=== PATIENT | female | born 1965 | race Caucasian/White ===

== ENCOUNTER 2020-04-16 16:12 | Outpatient (REF) | payer BC, SELFPAY ==
--- NOTE | ~2020-04-16 | MM_ITS ---
EXAMINATION: MM SCREENING DIGITAL BREAST TOMOSYNTHESIS, BILATERAL CLINICAL INFORMATION: Screening. Asymptomatic. The lifetime risk of breast cancer based on the Tyrer-Cuzick Model is 14%. COMPARISON: Mammography: 09/11/2018, 03/24/2017 TECHNIQUE: Digital breast tomosynthesis is performed in both the craniocaudal and mediolateral oblique views along with computer-aided detection (CAD). Synthesized 2D images are generated from the tomosynthesis. FINDINGS: The breasts are almost entirely fatty (ACR BI-RADS breast composition Category a). Background stromal markings are stable. No developing density. There are no significant masses, abnormal calcifications, or other abnormalities. MM/MM tomosynthesis screening BI IMPRESSION: No mammographic evidence of malignancy. ASSESSMENT: BI-RADS 1: Negative RECOMMENDATION: Routine annual mammography screening. This patient's information was entered into a reminder system with a target due date for their next mammogram.
== END 2020-04-16 16:13 | disposition home or self-care (01) ==
LOC: HO.MAMMO 16:12
PROVIDERS: Visit Provider Internal Medicine
DX: Z12.31 Encounter for screening mammogram for malignant neoplasm of breast (principal)
CPT/HCPCS: 77063; 77067

== ENCOUNTER 2020-04-21 06:32 | Day surgery (SDC) | payer BC, SELFPAY ==
--- NOTE | 2020-04-20 08:55 | HO.ANESPROP2 ---
Documented by User: Angela Silva 04/20/20 08:56 HPI - Anesthesia Eval Consult details Narrative: 54yo F for Colonoscopy [facility] Past Medical History Medical History Elevated cholesterol HTN (hypertension) Hypothyroid Seasonal allergies Surgical History Surgical History History of Hx of colonoscopy Social History Social History Smoking Status: Former smoker Years Smoked: 20 Use of substances other than those prescribed or required for medical reasons: No Advance Directives: No Advance Directives Information Provided: Yes Meds Allergies Allergy/AdvReac Type Severity Reaction Status Date / Time penicillin V Allergy Mild Rash Verified 04/21/20 06:50 Home Medications Medication Instructions Recorded Confirmed Last Taken Type levothyroxine 1 tab PO DAILY 04/14/20 04/14/20 Unknown History lisinopril 1 tab PO DAILY 04/14/20 04/14/20 Unknown History simvastatin 1 tab PO DAILY 04/14/20 04/14/20 Unknown History Exam Exam Date and Time: April 20, 2020 0855 Assessment and Plan Assessment Anesthesia Assessment: Chart Reviewed Documented by User: Surekha Garrison 04/21/20 07:48 [facility] Past Medical History Medical History Elevated cholesterol HTN (hypertension) Hypothyroid Seasonal allergies Surgical History Surgical History History of Hx of colonoscopy Social History Social History Smoking Status: Former smoker Years Smoked: 20 Use of substances other than those prescribed or required for medical reasons: No Advance Directives: No Advance Directives Information Provided: Yes Meds Allergies Allergy/AdvReac Type Severity Reaction Status Date / Time penicillin V Allergy Mild Rash Verified 04/21/20 06:50 Home Medications Medication Instructions Recorded Confirmed Last Taken Type levothyroxine 1 tab PO DAILY 04/14/20 04/14/20 Unknown History lisinopril 1 tab PO DAILY 04/14/20 04/14/20 Unknown History simvastatin 1 tab PO DAILY 04/14/20 04/14/20 Unknown History Exam Airway Mallampati Class: II TM Dist: >3cm Neck ROM: Full Loose/Missing/Broken Teeth: No Heart: RRR Lungs: CTA Assessment and Plan Assessment Anesthesia Assessment: Anesthesia Plan Discussed and Chart Reviewed Final Anesthetic Review NPO: Yes ASA Class: II Final Preanesthetic Review: Meds/Allgs Chart Reviewed, Consent Obtained/Reviewed and Anes Risks/Benef Reviewed Patient Risk: Low Procedure Risk: Low Anesthetic Plan Anesthetic Plan: MAC: Disposition: Standard PACU
[2020-04-21 06:57] VITALS: BMI 31.2
[2020-04-21 07:03] VITALS: BP 135/79; PULSE 75; RESP 16; TEMP 36.8; O2SAT 94
[2020-04-21] MEDS: Lactated Ringers 1,000 ML 100 ML IVCONT (07:20)
[2020-04-21 08:34] VITALS: BP 140/86; PULSE 93; RESP 16; TEMP 36.6; O2SAT 97
--- NOTE | 2020-04-21 08:34 | PM.OP ---
Brief Operative Note Date of Service: 04/21/20 Pre-op diagnosis: Screening, Hx of polyps Post-op diagnosis: other (Diverticulosis) Procedure: Colonoscopy to the cecum Surgeon: Bronson Ivan Anesthesia: MAC Estimated blood loss (mL): 0 Pathology: none sent Condition: stable Disposition: PACU
[2020-04-21 08:43] VITALS: BP 119/77; PULSE 86; RESP 18; TEMP 36.6; O2SAT 95
--- NOTE | 2020-04-21 09:17 | OP_ITS ---
SURGEON: Bronson Ivan MD INDICATIONS: Full consent has been obtained from her for this, including risks of bleeding and perforation. PREOPERATIVE DIAGNOSIS: Colorectal cancer screening and personal history of tubular adenoma of the colon. POSTOPERATIVE DIAGNOSIS: Colorectal cancer screening and personal history of tubular adenoma of the colon, diverticulosis and internal hemorrhoids. PROCEDURE PERFORMED: Colonoscopy to the cecum. ESTIMATED BLOOD LOSS: COMPLICATIONS: ANESTHESIA: Medication used, monitored anesthesia care. ASSISTANTS: SPECIMENS: DESCRIPTION OF PROCEDURE: The patient was placed in the left lateral decubitus position. The digital rectal exam revealed no abnormalities. The Olympus video pediatric colonoscope was entered into the rectum, advanced easily to the cecum. Once in the cecum, I did identify normal-appearing cecal pouch with appendiceal orifice and a normal-appearing ileocecal valve. There was transillumination of light deep in the right lower quadrant. The entire cecum and ileocecal valve appeared normal. The scope was slowly withdrawn assessing all mucosal surfaces carefully. Preparation was excellent. I did not visualize any sign of polyps, colitis, nor angiodysplasia. There was a mild amount of sigmoid diverticulosis. In the rectum, scope was retroflexed visualizing internal hemorrhoids, but no other pathology. The rectal mucosa appeared normal. The scope was straightened and withdrawn from the patient. She tolerated the procedure well and was returned to recovery area in stable condition. IMPRESSION: 1. Mild diverticulosis. 2. Internal hemorrhoids. PLAN: Given her previous history of a tubular adenoma, I would recommend a followup colonoscopy in 5 years for further screening. She will otherwise see me on a p.r.n. basis. This has been discussed with her . MD TOÑITO Justice/ASHWINIL / [phone]
--- NOTE | 2020-04-21 10:04 | HO.POSTANES ---
Post Anesthesia Evaluation Post Anesthesia Evaluation Vital Signs: Vital Signs Temp Pulse Resp BP Pulse Ox 04/21/20 08:43 97.9 F 86 18 119/77 95 04/21/20 08:34 97.9 F 93 16 140/86 H 97 04/21/20 07:03 98.2 F 75 16 135/79 94 Anesthesia: Monitored Mental Status: Awake Pain Control: Satisfactory Nausea/Vomiting: None Hydration: Adequate
== END 2020-04-21 09:16 | disposition home or self-care (01) ==
PROVIDERS: PCP Internal Medicine; Visit Provider Internal Medicine
PROC: 0DJD8ZZ Inspection of Lower Intestinal Tract, Via Natural or Artificial Opening Endoscopic (ICD-10-PCS; CPT 45378; principal; 2020-04-21 07:30)
DX: Z12.11 Encounter for screening for malignant neoplasm of colon (principal); Z86.010 Personal history of colon polyps; K57.30 Diverticulosis of large intestine without perforation or abscess without bleeding; K64.8 Other hemorrhoids; I10 Essential (primary) hypertension; Z91.09 Other allergy status, other than to drugs and biological substances
CPT/HCPCS: 45378; J2250

== ENCOUNTER 2020-08-26 09:45 | Outpatient (REF) | payer BC, SELFPAY ==
[2020-08-26 10:02] LABS: MANUAL DIFF FLAG NO
[2020-08-26 10:24] LABS: Basophils Percent Auto 0.5 % (0-2); Eosinophils Absolute Auto 0.1 X10*3/uL (0.0-0.4); Eosinophils Percent Auto 1.7 % (0-4); Imm Gran Abs Auto 0.03 X10*3/uL (0.00-0.03); Imm Gran Pct Auto 0.5 % (0.0-0.4); Lymphocytes Absolute Auto 1.3 X10*3/uL (1.2-4.9); Lymphocytes Percent Auto 20.8 % (20-40); Mean Corpuscular HGB Conc 32.6 g/dl (31.0-35.0); Mean Corpuscular Hemoglobin 27.7 pg (27.0-33.0); Mean Platelet Volume 10.1 fL (9.4-12.3); Monocytes Absolute Auto 0.5 X10*3/uL (0.1-1.2); Monocytes Percent Auto 8.4 % (2-11); Neutrophils Absolute Auto 4.3 X10*3/uL (2.0-8.3); Neutrophils Percent Auto 68.1 % (45-73); Platelet Count 219 X10*3/uL (160-400); Red Blood Count 5.06 X10*6/uL (4.20-5.50); Red Cell Distribution Width 13.1 % (11.0-16.0); White Blood Count 6.3 X10*3/uL (4.8-10.8)
[2020-08-26 10:51] LABS: Alanine Aminotransferase 29 U/L (0-31); Albumin Level 4.6 g/dL (3.5-5.0); Alkaline Phosphatase 86 U/L (39-117); Anion Gap 14 (12-20); Aspartate Amino Transferase 21 U/L (5-31); Bilirubin Total 0.6 mg/dL (0.0-1.0); Blood Urea Nitrogen 18 mg/dL (9-16); Calcium 9.5 mg/dL (8.4-10.2); Carbon Dioxide 26 mmol/L (22-29); Chloride 106 mmol/L (96-108); Cholesterol 179 mg/dL; Estimated Glomerular Filt Rate > 60; Glucose Fasting 109 mg/dL (60-99); HDL Cholesterol 41 mg/dL; LDL Cholesterol Calculated 100 mg/dl; Potassium 4.7 mmol/L (3.3-5.1); Sodium 141 mmol/L (135-145); Triglycerides 191 mg/dL
[2020-08-26 11:11] LABS: Free T4 (Free Thyroxine) 1.25 ng/dL (0.71-1.85); Thyroid Stimulating Hormone 0.15 uIU/mL (0.32-4.0)
== END 2020-08-26 09:46 | disposition home or self-care (01) ==
LOC: HO.LAB 09:45
PROVIDERS: PCP Internal Medicine; Visit Provider Internal Medicine
DX: Z00.00 Encounter for general adult medical examination without abnormal findings (principal); I10 Essential (primary) hypertension; E03.9 Hypothyroidism, unspecified; E78.00 Pure hypercholesterolemia, unspecified
CPT/HCPCS: 36415; 80053; 80061; 84439; 84443; 85025

== ENCOUNTER 2020-09-07 15:11 | Outpatient (REF) | payer BC, SELFPAY ==
[2020-09-07 16:05] LABS: MANUAL DIFF FLAG NO
[2020-09-07 16:18] LABS: Basophils Percent Auto 0.3 % (0-2); Eosinophils Absolute Auto 0.1 X10*3/uL (0.0-0.4); Eosinophils Percent Auto 1.9 % (0-4); Hematocrit 42.3 % (37-47); Hemoglobin 13.9 g/dl (12.0-16.0); Imm Gran Abs Auto 0.04 X10*3/uL (0.00-0.03); Imm Gran Pct Auto 0.6 % (0.0-0.4); Lymphocytes Absolute Auto 1.5 X10*3/uL (1.2-4.9); Lymphocytes Percent Auto 21.7 % (20-40); Mean Corpuscular HGB Conc 32.9 g/dl (31.0-35.0); Mean Corpuscular Hemoglobin 27.9 pg (27.0-33.0); Mean Corpuscular Volume 84.9 fL (80-98); Mean Platelet Volume 10.4 fL (9.4-12.3); Monocytes Absolute Auto 0.6 X10*3/uL (0.1-1.2); Monocytes Percent Auto 9.5 % (2-11); Neutrophils Absolute Auto 4.5 X10*3/uL (2.0-8.3); Platelet Count 215 X10*3/uL (160-400); Red Blood Count 4.98 X10*6/uL (4.20-5.50); Red Cell Distribution Width 13.2 % (11.0-16.0); White Blood Count 6.7 X10*3/uL (4.8-10.8)
[2020-09-07 16:22] LABS: C Reactive Protein 9.02 mg/dL (< or = 0.50); Glucose Urine UA NEG (NEG); Leukocyte Esterase Urine NEG (NEG); Nitrite Urine NEG (NEG); PH 5.5 (5.0-8.0); Specific Gravity - Urine >= 1.030 (1.005-1.025); Urine Blood NEG (NEG); Urine Ketones 5 MG/DL (NEG); Urine Protein NEG (NEG-TRACE)
[2020-09-07 16:32] LABS: Appearance Urine CLEAR; Color Urine YELLOW
== END 2020-09-07 15:12 | disposition home or self-care (01) ==
LOC: HO.LAB 15:11
PROVIDERS: PCP Internal Medicine; Visit Provider Internal Medicine
DX: R10.9 Unspecified abdominal pain (principal); K57.90 Diverticulosis of intestine, part unspecified, without perforation or abscess without bleeding
CPT/HCPCS: 36415; 81003; 85025; 86140

== ENCOUNTER 2021-03-04 10:17 | Outpatient (REF) | payer BC, SELFPAY ==
[2021-03-04 11:28] LABS: COVID-19 Test Negative (Negative)
== END 2021-03-04 10:18 | disposition home or self-care (01) ==
LOC: HO.LAB 10:17
PROVIDERS: Visit Provider Internal Medicine
DX: Z20.822 Contact with and (suspected) exposure to COVID-19 (principal)
CPT/HCPCS: 36415; 87635; C9803

== ENCOUNTER 2021-03-09 15:00 | Outpatient (REF) | payer BC, SELFPAY ==
[2021-03-09 15:13] LABS: COVID-19 Test Positive (Negative); IDNOW Serial# 9DD0AD1C
== END 2021-03-09 15:01 | disposition home or self-care (01) ==
LOC: HO.LNP 15:00
PROVIDERS: Visit Provider Internal Medicine
DX: Z20.822 Contact with and (suspected) exposure to COVID-19 (principal)
CPT/HCPCS: 87635

== ENCOUNTER 2021-10-10 14:52 | Outpatient (REF) | payer BC, SELFPAY ==
--- NOTE | ~2021-10-10 | MM_ITS ---
EXAMINATION: MM SCREENING DIGITAL BREAST TOMOSYNTHESIS, BILATERAL CLINICAL INFORMATION: Screening. Asymptomatic. The lifetime risk of breast cancer based on the Tyrer-Cuzick Model is 14%. COMPARISON: Mammography: 04/16/2020, 09/11/2018, 03/24/2017 TECHNIQUE: Digital breast tomosynthesis is performed in both the craniocaudal and mediolateral oblique views along with computer-aided detection (CAD). Synthesized 2D images are generated from the tomosynthesis. FINDINGS: The breasts are almost entirely fatty (ACR BI-RADS breast composition Category a). There are no significant masses, abnormal calcifications, or other abnormalities. Background stromal markings are normal. No developing density or architectural abnormality. No significant changes. MM/MM tomosynthesis screening BI IMPRESSION: No mammographic evidence of malignancy. ASSESSMENT: BI-RADS 1: Negative RECOMMENDATION: Routine annual mammography screening. This patient's information was entered into a reminder system with a target due date for their next mammogram.
== END 2021-10-10 14:53 | disposition home or self-care (01) ==
LOC: HO.MAMMO 14:52
PROVIDERS: Visit Provider Internal Medicine
DX: Z12.31 Encounter for screening mammogram for malignant neoplasm of breast (principal)
CPT/HCPCS: 77063; 77067

== ENCOUNTER 2022-01-19 17:24 | Emergency (ER) | payer BC, SELFPAY ==
--- NOTE | ~2022-01-19 | XR_ITS ---
EXAMINATION: XR CHEST CLINICAL INFORMATION: Palpitations. COMPARISON: None TECHNIQUE: Frontal view of the chest was obtained. FINDINGS: No significant abnormality is noted involving the heart, lungs, mediastinum, bony thorax or soft tissues. XR/XR chest 1V IMPRESSION: Unremarkable examination.
[2022-01-19 17:28] VITALS: BP 171/95; PULSE 76; RESP 18; O2SAT 99; BMI 31.2
--- NOTE | 2022-01-19 17:29 | ED_ITS ---
HPI - Arrhythmia/Palpitations General Chief Complaint: Arrhythmia/Palpitations <DEIRDRE Carreno - Last Filed: 01/19/22 17:35> Stated Complaint: heart palpatations <DEIRDRE Carreno - Last Filed: 01/19/22 17:35> Time Seen by Provider: 01/19/22 21:19 <DEIRDRE Carreno - Last Filed: 01/19/22 17:35> Source: patient <Jimmy Lenz MD - Last Filed: 01/19/22 22:04> Mode of arrival: ambulatory <Jimmy Lenz MD - Last Filed: 01/19/22 22:04> Limitations: no limitations <Jimmy Lenz MD - Last Filed: 01/19/22 22:04> History of Present Illness HPI narrative: Patient has history of anxiety and hypothyroidism on levothyroxine since yesterday patient noticed heart fluttering lasting for few minutes without any dizziness or chest pain or passing out episode no change in the dosage of levothyroxine for last 2 years no weight loss patient feel funny feeling in the heart without any pauses has not checked the heart rate patient has been here in the ER connected to the monitor without any significant arrhythmia noticed except for few PACs no shortness of breath no leg swelling or pain patient denies any significant caffeine use <Jimmy Lenz MD - Last Filed: 01/19/22 22:04> Related Data Home Medications: Home Medications Medication Instructions Recorded Confirmed levothyroxine 100 mcg tablet 1 tab PO DAILY 04/14/20 04/14/20 lisinopril 5 mg tablet 1 tab PO DAILY 04/14/20 04/14/20 simvastatin 20 mg tablet 1 tab PO DAILY 04/14/20 04/14/20 fluticasone propionate 50 1 spray intranasal DAILY 12/28/21 mcg/actuation nasal spray,suspension (Flonase Allergy Relief) loratadine 10 mg tablet (Claritin) 10 mg PO DAILY 12/28/21 Previous Rx's Medication Instructions Recorded levothyroxine 75 mcg capsule 75 mcg PO DAILY #30 caps 01/19/22 <DEIRDRE Carreno - Last Filed: 01/19/22 17:35> Allergies/Adverse Reactions: Allergies Allergy/AdvReac Type Severity Reaction Status Date / Time penicillin V Allergy Mild Rash Verified 12/28/21 15:48 <DEIRDRE Carreno - Last Filed: 01/19/22 17:35> Review of Systems Review of Systems: Yes all other systems are reviewed and are negative <Jimmy Lenz MD - Last Filed: 01/19/22 22:04> [facility] Past Medical History Medical History: Medical History Elevated cholesterol HTN (hypertension) Hypothyroid Seasonal allergies <DEIRDRE Carreno - Last Filed: 01/19/22 17:35> Surgical History: Surgical History History of Hx of colonoscopy <DEIRDRE Carreno - Last Filed: 01/19/22 17:35> Family History Family History: Family History Maternal Aunt History of breast cancer <DEIRDRE Carreno - Last Filed: 01/19/22 17:35> Social History Social History: Social History Alcohol intake: current Alcohol intake frequency: holidays/special occasions only Patient Tobacco Use Status: Former Tobacco user Years Smoked: 20 Advance Directives: No Advance Directives Information Provided: Yes Current occupational status: employed 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 <DEIRDRE Carreno - Last Filed: 01/19/22 17:35> Physical Exam Vital Signs: Vital Signs: Last Vital Signs Temp 98.2 F 01/19/22 20:25 Pulse 72 01/19/22 20:25 Resp 16 01/19/22 20:25 BP 146/90 H 01/19/22 20:25 Pulse Ox 95 01/19/22 20:25 O2 Del Method 01/19/22 20:25 BMI result Body Mass Index 31.2 <DEIRDRE Carreno - Last Filed: 01/19/22 17:35> Vital Signs: Last Vital Signs Temp 98.2 F 01/19/22 20:25 Pulse 72 01/19/22 20:25 Resp 16 01/19/22 20:25 BP 146/90 H 01/19/22 20:25 Pulse Ox 95 01/19/22 20:25 O2 Del Method 01/19/22 20:25 BMI result Body Mass Index 31.2 <Jimmy Lenz MD - Last Filed: 01/19/22 22:04> Appearance: Alert. Oriented X3. No acute distress. Eyes: PERRLA, No Nystagmus ENT: Pharynx normal. Oral Mucosa moist Neck: Normal inspection. Neck supple. CVS: Normal heart rate and rhythm. Pulses normal. Respiratory: No respiratory distress. Equal air entry bilateral, no wheezing/rales/rhonchi Abdomen: Soft and nontender. Bowel sounds are present, no mass palpable, no CVA tenderness Skin: Skin warm and dry. Normal skin color. Normal skin turgor. Extremities: No lower extremity edema. No calf tenderness Neuro: Oriented X 3. No motor deficit. <Jimmy Lenz MD - Last Filed: 01/19/22 22:04> Course Course Course Narrative: RME--56yo F with PMHx HLD, HTN, hypothyroid, c/o palpitations/fluttering since 3PM. Reports sx intermittent. 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 <Jimmy Lenz MD - Last Filed: 01/19/22 22:04> Result diagrams: : 01/19/22 17:56 01/19/22 17:56 <DEIRDRE Carreno - Last Filed: 01/19/22 17:35> Labs: Lab Results 01/19/22 01/19/22 01/19/22 Range/Units 17:56 17:56 17:56 WBC 5.7 (4.8-10.8) X10*3/uL RBC 4.89 (4.20-5.50) X10*6/uL Hgb 13.4 (12.0-16.0) g/dl Hct 41.3 (37.0-47.0) % MCV 84.5 (80.0-98.0) fL MCH 27.4 (27.0-33.0) pg MCHC 32.4 (31.0-35.0) g/dl RDW 13.0 (11.0-16.0) % Plt Count 200 (160-400) X10*3/uL MPV 9.8 (9.4-12.3) fL Immature Gran % (Auto) 0.7 H (0.0-0.4) % Neut % (Auto) 60.4 (45-73) % Lymph % (Auto) 25.8 (20-40) % Powell % (Auto) 10.5 (2-11) % Eos % (Auto) 2.1 (0-4) % Baso % (Auto) 0.5 (0-2) % Lymph # (Auto) 1.5 (1.2-4.9) X10*3/uL Powell # (Auto) 0.6 (0.1-1.2) X10*3/uL Eos # (Auto) 0.1 (0.0-0.4) X10*3/uL Baso # (Auto) 0.0 (0.0-0.2) X10*3/uL Abs Immat Gran (auto) 0.04 H (0.00-0.03) X10*3/uL Absolute Neuts (auto) 3.5 (2.0-8.3) x10*3/uL Absolute Nucleated RBC 0.000 (0.0-0.012) X10*3/uL Nucleated RBC % (auto) 0.0 (0.0-0.2) /100WBC Sodium 142 (135-145) mmol/L Potassium 4.8 (3.3-5.1) mmol/L Chloride 105 (96-108) mmol/L Carbon Dioxide 27 (22-29) mmol/L Anion Gap 15 (12-20) BUN 18 H (9-16) mg/dL Creatinine 0.86 (0.5-1.4) mg/dL Estim Creat Clear Calc 63.3 Estimated GFR > 60 Random Glucose 98 (60-115) mg/dL Calcium 9.6 (8.4-10.2) mg/dL Magnesium 2.1 (1.6-2.6) mg/dL Total Bilirubin 0.7 (0.0-1.0) mg/dL Direct Bilirubin 0.2 (0.0-0.5) mg/dL AST 20 (5-31) U/L ALT 29 (0-31) U/L Alkaline Phosphatase 64 (39-117) U/L Troponin I High Sens < 3.5 (<3.5-17.0) ng/L B-Natriuretic Peptide (<100) pg/mL Total Protein 7.1 (6.5-8.0) g/dL Albumin 4.7 (3.5-5.0) g/dL TSH 0.31 L (0.32-4.0) uIU/mL Free T4 1.18 (0.71-1.85) ng/dL // Range/Units 17:56 WBC (4.8-10.8) X10*3/uL RBC (4.20-5.50) X10*6/uL Hgb (12.0-16.0) g/dl Hct (37.0-47.0) % MCV (80.0-98.0) fL MCH (27.0-33.0) pg MCHC (31.0-35.0) g/dl RDW (11.0-16.0) % Plt Count (160-400) X10*3/uL MPV (9.4-12.3) fL Immature Gran % (Auto) (0.0-0.4) % Neut % (Auto) (45-73) % Lymph % (Auto) (20-40) % Powell % (Auto) (2-11) % Eos % (Auto) (0-4) % Baso % (Auto) (0-2) % Lymph # (Auto) (1.2-4.9) X10*3/uL Powell # (Auto) (0.1-1.2) X10*3/uL Eos # (Auto) (0.0-0.4) X10*3/uL Baso # (Auto) (0.0-0.2) X10*3/uL Abs Immat Gran (auto) (0.00-0.03) X10*3/uL Absolute Neuts (auto) (2.0-8.3) x10*3/uL Absolute Nucleated RBC (0.0-0.012) X10*3/uL Nucleated RBC % (auto) (0.0-0.2) /100WBC Sodium (135-145) mmol/L Potassium (3.3-5.1) mmol/L Chloride (96-108) mmol/L Carbon Dioxide (22-29) mmol/L Anion Gap (12-20) BUN (9-16) mg/dL Creatinine (0.5-1.4) mg/dL Estim Creat Clear Calc Estimated GFR Random Glucose (60-115) mg/dL Calcium (8.4-10.2) mg/dL Magnesium (1.6-2.6) mg/dL Total Bilirubin (0.0-1.0) mg/dL Direct Bilirubin (0.0-0.5) mg/dL AST (5-31) U/L ALT (0-31) U/L Alkaline Phosphatase (39-117) U/L Troponin I High Sens (<3.5-17.0) ng/L B-Natriuretic Peptide < 10 (<100) pg/mL Total Protein (6.5-8.0) g/dL Albumin (3.5-5.0) g/dL TSH (0.32-4.0) uIU/mL Free T4 (0.71-1.85) ng/dL <DEIRDRE Carreno - Last Filed: 01/19/22 17:35> Lab Results 01/19/22 01/19/22 01/19/22 Range/Units 17:56 17:56 17:56 WBC 5.7 (4.8-10.8) X10*3/uL RBC 4.89 (4.20-5.50) X10*6/uL Hgb 13.4 (12.0-16.0) g/dl Hct 41.3 (37.0-47.0) % MCV 84.5 (80.0-98.0) fL MCH 27.4 (27.0-33.0) pg MCHC 32.4 (31.0-35.0) g/dl RDW 13.0 (11.0-16.0) % Plt Count 200 (160-400) X10*3/uL MPV 9.8 (9.4-12.3) fL Immature Gran % (Auto) 0.7 H (0.0-0.4) % Neut % (Auto) 60.4 (45-73) % Lymph % (Auto) 25.8 (20-40) % Powell % (Auto) 10.5 (2-11) % Eos % (Auto) 2.1 (0-4) % Baso % (Auto) 0.5 (0-2) % Lymph # (Auto) 1.5 (1.2-4.9) X10*3/uL Powell # (Auto) 0.6 (0.1-1.2) X10*3/uL Eos # (Auto) 0.1 (0.0-0.4) X10*3/uL Baso # (Auto) 0.0 (0.0-0.2) X10*3/uL Abs Immat Gran (auto) 0.04 H (0.00-0.03) X10*3/uL Absolute Neuts (auto) 3.5 (2.0-8.3) x10*3/uL Absolute Nucleated RBC 0.000 (0.0-0.012) X10*3/uL Nucleated RBC % (auto) 0.0 (0.0-0.2) /100WBC Sodium 142 (135-145) mmol/L Potassium 4.8 (3.3-5.1) mmol/L Chloride 105 (96-108) mmol/L Carbon Dioxide 27 (22-29) mmol/L Anion Gap 15 (12-20) BUN 18 H (9-16) mg/dL Creatinine 0.86 (0.5-1.4) mg/dL Estim Creat Clear Calc 63.3 Estimated GFR > 60 Random Glucose 98 (60-115) mg/dL Calcium 9.6 (8.4-10.2) mg/dL Magnesium 2.1 (1.6-2.6) mg/dL Total Bilirubin 0.7 (0.0-1.0) mg/dL Direct Bilirubin 0.2 (0.0-0.5) mg/dL AST 20 (5-31) U/L ALT 29 (0-31) U/L Alkaline Phosphatase 64 (39-117) U/L Troponin I High Sens < 3.5 (<3.5-17.0) ng/L B-Natriuretic Peptide (<100) pg/mL Total Protein 7.1 (6.5-8.0) g/dL Albumin 4.7 (3.5-5.0) g/dL TSH 0.31 L (0.32-4.0) uIU/mL Free T4 1.18 (0.71-1.85) ng/dL 11// Range/Units 17:56 WBC (4.8-10.8) X10*3/uL RBC (4.20-5.50) X10*6/uL Hgb (12.0-16.0) g/dl Hct (37.0-47.0) % MCV (80.0-98.0) fL MCH (27.0-33.0) pg MCHC (31.0-35.0) g/dl RDW (11.0-16.0) % Plt Count (160-400) X10*3/uL MPV (9.4-12.3) fL Immature Gran % (Auto) (0.0-0.4) % Neut % (Auto) (45-73) % Lymph % (Auto) (20-40) % Powell % (Auto) (2-11) % Eos % (Auto) (0-4) % Baso % (Auto) (0-2) % Lymph # (Auto) (1.2-4.9) X10*3/uL Powell # (Auto) (0.1-1.2) X10*3/uL Eos # (Auto) (0.0-0.4) X10*3/uL Baso # (Auto) (0.0-0.2) X10*3/uL Abs Immat Gran (auto) (0.00-0.03) X10*3/uL Absolute Neuts (auto) (2.0-8.3) x10*3/uL Absolute Nucleated RBC (0.0-0.012) X10*3/uL Nucleated RBC % (auto) (0.0-0.2) /100WBC Sodium (135-145) mmol/L Potassium (3.3-5.1) mmol/L Chloride (96-108) mmol/L Carbon Dioxide (22-29) mmol/L Anion Gap (12-20) BUN (9-16) mg/dL Creatinine (0.5-1.4) mg/dL Estim Creat Clear Calc Estimated GFR Random Glucose (60-115) mg/dL Calcium (8.4-10.2) mg/dL Magnesium (1.6-2.6) mg/dL Total Bilirubin (0.0-1.0) mg/dL Direct Bilirubin (0.0-0.5) mg/dL AST (5-31) U/L ALT (0-31) U/L Alkaline Phosphatase (39-117) U/L Troponin I High Sens (<3.5-17.0) ng/L B-Natriuretic Peptide < 10 (<100) pg/mL Total Protein (6.5-8.0) g/dL Albumin (3.5-5.0) g/dL TSH (0.32-4.0) uIU/mL Free T4 (0.71-1.85) ng/dL <Jimmy Lenz MD - Last Filed: 01/19/22 22:04> ECG Data Attestation: I personally reviewed and interpreted this ECG as follows: <Jimmy Lenz MD - Last Filed: 01/19/22 22:04> Interpretation: Number sinus rhythm heart rate 76 beats per minute no acute ST-T no acute ischemia <Jimmy Lenz MD - Last Filed: 01/19/22 22:04> Discharge Plan Discharge Clinical Impression: Palpitations <DEIRDRE Carreno - Last Filed: 01/19/22 17:35> Patient Disposition: Home, Self-Care <DEIRDRE Carreno - Last Filed: 01/19/22 17:35> Instructions: Heart Palpitations (ED) <DEIRDRE Carreno - Last Filed: 01/19/22 17:35> Additional Instructions: Decrease caffeine intake You may have to decrease your levothyroxine suggested to take 75 mcg daily instead of 100mcg Follow-up with your primary care doctor for further evaluation including Holter monitoring Report to ER if syncope episode/ chest pain <DEIRDRE Carreno - Last Filed: 01/19/22 17:35> Prescriptions: New levothyroxine 75 mcg capsule 75 mcg PO DAILY Qty: 30 0RF No Action levothyroxine 100 mcg tablet 1 tab PO DAILY simvastatin 20 mg tablet 1 tab PO DAILY lisinopril 5 mg tablet 1 tab PO DAILY loratadine [Claritin] 10 mg tablet 10 mg PO DAILY fluticasone propionate [Flonase Allergy Relief] 50 mcg/actuation spray,suspension 1 spray intranasal DAILY Rx Instructions: administer into each nostril <DEIRDRE Carreno - Last Filed: 01/19/22 17:35>
--- NOTE | 2022-01-19 17:29 | ECG_ITS ---
Test Reason : palpitations Blood Pressure : / mmHG Vent. Rate : 076 BPM Atrial Rate : 076 BPM P-R Int : 160 ms QRS Dur : 074 ms QT Int : 376 ms P-R-T Axes : 041 018 015 degrees QTc Int : 423 ms Normal sinus rhythm Low voltage QRS Otherwise normal ECG No previous ECGs available Referred By: Helen Melchor Electronically Signed By:ANAYA ALBRIGHT MD
[2022-01-19 18:06] LABS: MANUAL DIFF FLAG NO
[2022-01-19 18:20] LABS: Basophils Percent Auto 0.5 % (0-2); Eosinophils Percent Auto 2.1 % (0-4); Hematocrit 41.3 % (37.0-47.0); Hemoglobin 13.4 g/dl (12.0-16.0); Imm Gran Pct Auto 0.7 % (0.0-0.4); Lymphocytes Percent Auto 25.8 % (20-40); Mean Corpuscular HGB Conc 32.4 g/dl (31.0-35.0); Mean Corpuscular Hemoglobin 27.4 pg (27.0-33.0); Mean Corpuscular Volume 84.5 fL (80.0-98.0); Mean Platelet Volume 9.8 fL (9.4-12.3); Monocytes Percent Auto 10.5 % (2-11); Neutrophils Absolute Auto 3.5 x10*3/uL (2.0-8.3); Neutrophils Percent Auto 60.4 % (45-73); Platelet Count 200 X10*3/uL (160-400); Red Blood Count 4.89 X10*6/uL (4.20-5.50); White Blood Count 5.7 X10*3/uL (4.8-10.8)
[2022-01-19 18:21] LABS: Eosinophils Absolute Auto 0.1 X10*3/uL (0.0-0.4); Imm Gran Abs Auto 0.04 X10*3/uL (0.00-0.03); Lymphocytes Absolute Auto 1.5 X10*3/uL (1.2-4.9); Monocytes Absolute Auto 0.6 X10*3/uL (0.1-1.2)
[2022-01-19 18:26] LABS: B Type Natriuretic Peptide < 10 pg/mL (<100)
[2022-01-19 18:27] LABS: Troponin-I High Sensitivity < 3.5 ng/L (<3.5-17.0)
[2022-01-19 18:42] LABS: Alanine Aminotransferase 29 U/L (0-31); Albumin Level 4.7 g/dL (3.5-5.0); Alkaline Phosphatase 64 U/L (39-117); Anion Gap 15 (12-20); Aspartate Amino Transferase 20 U/L (5-31); Bilirubin Direct 0.2 mg/dL (0.0-0.5); Bilirubin Total 0.7 mg/dL (0.0-1.0); Blood Urea Nitrogen 18 mg/dL (9-16); Calcium 9.6 mg/dL (8.4-10.2); Carbon Dioxide 27 mmol/L (22-29); Chloride 105 mmol/L (96-108); Creatinine Clr Calc Pharmacy 63.3; Estimated Glomerular Filt Rate > 60; Glucose Random 98 mg/dL (60-115); Magnesium 2.1 mg/dL (1.6-2.6); Potassium 4.8 mmol/L (3.3-5.1); Sodium 142 mmol/L (135-145); TSH reflex Free T4 0.31 uIU/mL (0.32-4.0); Total Protein 7.1 g/dL (6.5-8.0)
[2022-01-19 19:34] LABS: Free T4 (Free Thyroxine) 1.18 ng/dL (0.71-1.85)
[2022-01-19 20:25] VITALS: BP 146/90; PULSE 72; RESP 16; TEMP 36.8; O2SAT 95
== END 2022-01-19 23:19 | disposition home or self-care (01) ==
PROVIDERS: Physician Assistant; Emergency Provider Internal Medicine; PCP Internal Medicine
DX: R00.2 Palpitations (principal); I49.9 Cardiac arrhythmia, unspecified; R06.02 Shortness of breath; Z79.899 Other long term (current) drug therapy
CPT/HCPCS: 36415; 71045; 80048; 80076; 83735; 83880; 84439; 84443; 84484; 85025; 93005; 99283; 99284

== ENCOUNTER → 2022-01-30 07:06 | Outpatient (REF) | payer BC, SELFPAY ==
--- NOTE | 2022-01-30 07:10 | HM_ITS ---
Conclusion: 1. Patient was monitored for total period of 3 days 2. Baseline was normal sinus rhythm with average heart of 82 beats per minute 3. No significant pauses noted 4. Rare PACs with total burden of 0.03% 5. Patient reported symptoms of flopped heartbeats correlated with PACs MTDD
== END ==
LOC: HO.CARD 07:06
PROVIDERS: PCP Internal Medicine; Visit Provider Internal Medicine
DX: R00.2 Palpitations (principal)
CPT/HCPCS: 93242

== ENCOUNTER 2022-10-02 17:26 | Outpatient (REF) | payer BC, SELFPAY ==
[2022-10-02 17:37] LABS: MANUAL DIFF FLAG NO
[2022-10-02 18:03] LABS: Alanine Aminotransferase 48 U/L (0-31); Albumin Level 4.3 g/dL (3.5-5.0); Alkaline Phosphatase 64 U/L (39-117); Anion Gap 15 (12-20); Aspartate Amino Transferase 40 U/L (5-31); Bilirubin Total 0.5 mg/dL (0.0-1.0); Blood Urea Nitrogen 12 mg/dL (9-16); C Reactive Protein 3.33 mg/dL (< or = 0.50); Calcium 9.3 mg/dL (8.4-10.2); Carbon Dioxide 23 mmol/L (22-29); Chloride 108 mmol/L (96-108); Estimated Glomerular Filt Rate > 60; Glucose Random 128 mg/dL (60-115); Potassium 3.9 mmol/L (3.3-5.1); Sodium 142 mmol/L (135-145); Total Protein 7.1 g/dL (6.5-8.0)
[2022-10-02 18:36] LABS: Erythrocyte Sedimentation Rate 16 MM/HR (0-20)
[2022-10-02 18:45] LABS: Basophils Percent Auto 0.5 % (0-2); Eosinophils Absolute Auto 0.1 X10*3/uL (0.0-0.4); Eosinophils Percent Auto 2.2 % (0-4); Hematocrit 39.5 % (37.0-47.0); Hemoglobin 12.9 g/dl (12.0-16.0); Imm Gran Abs Auto 0.02 X10*3/uL (0.00-0.03); Imm Gran Pct Auto 0.3 % (0.0-0.4); Lymphocytes Absolute Auto 1.4 X10*3/uL (1.2-4.9); Mean Corpuscular HGB Conc 32.7 g/dl (31.0-35.0); Mean Corpuscular Hemoglobin 27.8 pg (27.0-33.0); Mean Corpuscular Volume 85.1 fL (80.0-98.0); Mean Platelet Volume 10.1 fL (9.4-12.3); Monocytes Absolute Auto 0.6 X10*3/uL (0.1-1.2); Monocytes Percent Auto 10.2 % (2-11); Neutrophils Absolute Auto 3.7 x10*3/uL (2.0-8.3); Neutrophils Percent Auto 62.8 % (45-73); Platelet Count 220 X10*3/uL (160-400); Red Blood Count 4.64 X10*6/uL (4.20-5.50); Red Cell Distribution Width 13.2 % (11.0-16.0)
== END 2022-10-02 17:27 | disposition home or self-care (01) ==
LOC: HO.LAB 17:26
PROVIDERS: PCP Internal Medicine; Visit Provider Internal Medicine
DX: R10.9 Unspecified abdominal pain (principal); Z87.19 Personal history of other diseases of the digestive system
CPT/HCPCS: 36415; 80053; 85025; 85652; 86140

== ENCOUNTER → 2022-10-19 07:45 | Outpatient (BNV) | payer BC, SELFPAY | PROVIDERS: PCP Internal Medicine; Visit Provider Radiology Diagnostic Radiology | DX: Z12.31 Encounter for screening mammogram for malignant neoplasm of breast (principal) | CPT/HCPCS: 77063; 77067 ==

== ENCOUNTER 2022-10-19 07:50 | Outpatient (REF) | payer BC, SELFPAY ==
--- NOTE | ~2022-10-19 | MM_ITS ---
EXAMINATION: MM SCREENING DIGITAL BREAST TOMOSYNTHESIS, BILATERAL CLINICAL INFORMATION: Screening. Asymptomatic. COMPARISON: Mammography: 10/10/2021. 04/16/2020, 09/11/2018, 03/24/2017, and dating back to 2008. TECHNIQUE: Digital breast tomosynthesis is performed in both the craniocaudal and mediolateral oblique views along with computer-aided detection (CAD). Synthesized 2D images are generated from the tomosynthesis. FINDINGS: The breasts are almost entirely fatty (ACR BI-RADS breast composition Category a). There are no suspicious masses, suspicious grouped calcifications, or areas of architectural distortion. The parenchymal pattern is stable from prior exams. MM/MM tomosynthesis screening BI IMPRESSION: No mammographic evidence of malignancy. ASSESSMENT: BI-RADS BI-RADS 1 - Negative RECOMMENDATION: Routine annual mammography screening. 1 year F/U This examination should not preclude the clinical evaluation of a suspicious palpable abnormality. This patient's information was entered into a reminder system with a target due date for their next mammogram.
== END 2022-10-19 07:51 | disposition home or self-care (01) ==
LOC: HO.MAMMO 07:50
PROVIDERS: PCP Internal Medicine; Visit Provider Internal Medicine
DX: Z12.31 Encounter for screening mammogram for malignant neoplasm of breast (principal)
CPT/HCPCS: 77063; 77067

== ENCOUNTER 2023-01-20 10:46 | Outpatient (REF) | payer BC, SELFPAY ==
[2023-01-20 10:58] LABS: MANUAL DIFF FLAG NO
[2023-01-20 11:17] LABS: Basophils Percent Auto 0.4 % (0-2); Eosinophils Absolute Auto 0.1 X10*3/uL (0.0-0.4); Eosinophils Percent Auto 2.1 % (0-4); Hematocrit 41.9 % (37.0-47.0); Hemoglobin 13.6 g/dl (12.0-16.0); Imm Gran Abs Auto 0.02 X10*3/uL (0.00-0.03); Imm Gran Pct Auto 0.4 % (0.0-0.4); Lymphocytes Absolute Auto 1.2 X10*3/uL (1.2-4.9); Lymphocytes Percent Auto 21.4 % (20-40); Mean Corpuscular HGB Conc 32.5 g/dl (31.0-35.0); Mean Corpuscular Hemoglobin 27.1 pg (27.0-33.0); Mean Corpuscular Volume 83.5 fL (80.0-98.0); Mean Platelet Volume 10.6 fL (9.4-12.3); Monocytes Absolute Auto 0.5 X10*3/uL (0.1-1.2); Neutrophils Absolute Auto 3.8 x10*3/uL (2.0-8.3); Neutrophils Percent Auto 66.7 % (45-73); Platelet Count 210 X10*3/uL (160-400); Red Blood Count 5.02 X10*6/uL (4.20-5.50); Red Cell Distribution Width 12.7 % (11.0-16.0); White Blood Count 5.7 X10*3/uL (4.8-10.8)
[2023-01-20 11:22] LABS: Estimated Average Glucose 103 mg/dL; Hemoglobin A1c % 5.2 % (<6.0)
[2023-01-20 11:45] LABS: Alanine Aminotransferase 20 U/L (0-31); Albumin Level 4.5 g/dL (3.5-5.0); Alkaline Phosphatase 68 U/L (39-117); Anion Gap 12 (12-20); Aspartate Amino Transferase 17 U/L (5-31); Bilirubin Total 0.7 mg/dL (0.0-1.0); Blood Urea Nitrogen 20 mg/dL (9-16); Calcium 9.8 mg/dL (8.4-10.2); Carbon Dioxide 26 mmol/L (22-29); Chloride 107 mmol/L (96-108); Cholesterol 164 mg/dL (<200); Creatinine Urine 151.01 mg/dL; Estimated Glomerular Filt Rate > 60; Glucose Fasting 101 mg/dL (60-99); HDL Cholesterol 36 mg/dL (>40); LDL Cholesterol Calculated 92 mg/dL (<100); Microalbumin Urine < 5.0 mg/L; Potassium 4.1 mmol/L (3.3-5.1); Sodium 141 mmol/L (135-145); Total Protein 7.1 g/dL (6.5-8.0); Triglycerides 181 mg/dL (<150)
[2023-01-20 12:02] LABS: Free T4 (Free Thyroxine) 1.19 ng/dL (0.71-1.85); Thyroid Stimulating Hormone 0.13 uIU/mL (0.32-4.0)
== END 2023-01-20 10:47 | disposition home or self-care (01) ==
LOC: HO.LAB 10:46
PROVIDERS: PCP Internal Medicine; Visit Provider Internal Medicine
DX: I10 Essential (primary) hypertension (principal); E78.00 Pure hypercholesterolemia, unspecified; E03.9 Hypothyroidism, unspecified; R73.03 Prediabetes
CPT/HCPCS: 36415; 80053; 80061; 82570; 83036; 84439; 84443; 85025

== ENCOUNTER 2023-05-12 10:46 | Outpatient (REF) | payer BC, SELFPAY ==
[2023-05-12 11:07] LABS: MANUAL DIFF FLAG NO
[2023-05-12 11:28] LABS: Basophils Percent Auto 0.7 % (0-2); Eosinophils Absolute Auto 0.2 X10*3/uL (0.0-0.4); Eosinophils Percent Auto 2.9 % (0-4); Hematocrit 41.6 % (37.0-47.0); Hemoglobin 13.8 g/dl (12.0-16.0); Imm Gran Abs Auto 0.03 X10*3/uL (0.00-0.03); Imm Gran Pct Auto 0.5 % (0.0-0.4); Lymphocytes Absolute Auto 1.5 X10*3/uL (1.2-4.9); Mean Corpuscular HGB Conc 33.2 g/dl (31.0-35.0); Mean Corpuscular Hemoglobin 28.3 pg (27.0-33.0); Mean Corpuscular Volume 85.4 fL (80.0-98.0); Monocytes Absolute Auto 0.6 X10*3/uL (0.1-1.2); Monocytes Percent Auto 9.4 % (2-11); Neutrophils Absolute Auto 3.6 x10*3/uL (2.0-8.3); Neutrophils Percent Auto 61.5 % (45-73); Platelet Count 207 X10*3/uL (160-400); Red Blood Count 4.87 X10*6/uL (4.20-5.50); Red Cell Distribution Width 12.9 % (11.0-16.0); White Blood Count 5.9 X10*3/uL (4.8-10.8)
[2023-05-12 12:28] LABS: Alanine Aminotransferase 30 U/L (0-31); Albumin Level 4.3 g/dL (3.5-5.0); Alkaline Phosphatase 64 U/L (39-117); Anion Gap 12 (12-20); Aspartate Amino Transferase 20 U/L (5-31); Bilirubin Total 0.6 mg/dL (0.0-1.0); Blood Urea Nitrogen 16 mg/dL (9-16); Calcium 9.3 mg/dL (8.4-10.2); Carbon Dioxide 27 mmol/L (22-29); Chloride 108 mmol/L (96-108); Estimated Glomerular Filt Rate > 60; Glucose Random 97 mg/dL (60-115); Potassium 4.3 mmol/L (3.3-5.1); Sodium 143 mmol/L (135-145); Total Protein 6.9 g/dL (6.5-8.0)
[2023-05-12 12:32] LABS: Free T4 (Free Thyroxine) 1.02 ng/dL (0.71-1.85); Thyroid Stimulating Hormone 2.11 uIU/mL (0.32-4.0)
== END 2023-05-12 10:47 | disposition home or self-care (01) ==
LOC: HO.LAB 10:46
PROVIDERS: PCP Internal Medicine; Visit Provider Internal Medicine
DX: I10 Essential (primary) hypertension (principal); E03.9 Hypothyroidism, unspecified; K57.90 Diverticulosis of intestine, part unspecified, without perforation or abscess without bleeding
CPT/HCPCS: 36415; 80053; 84439; 84443; 85025

== ENCOUNTER 2023-06-21 14:10 | Outpatient (REF) | payer BC, SELFPAY ==
[2023-06-28 02:24] LABS: HPV mRNA E6/E7 rflx Not Detected (Not Detected)
== END 2023-06-21 14:11 | disposition home or self-care (01) ==
LOC: HO.LNP 14:10
PROVIDERS: PCP Internal Medicine; Visit Provider Advanced Practice Midwife
DX: Z01.419 Encounter for gynecological examination (general) (routine) without abnormal findings (principal); Z11.51 Encounter for screening for human papillomavirus (HPV)
CPT/HCPCS: 87624; 88142

== ENCOUNTER 2023-06-21 14:10 | Outpatient (AMB) | payer BC, SELFPAY ==
--- NOTE | 2023-06-21 14:11 | A.OFFVIS_ITS ---
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 She is doing well with no concerns. Attempting to eat a healthy diet with calcium and vitamin D and stays active with exercise. Currently not sexually active. Denies any vaginal dryness or irritation. Last pap smear; 2018. Last mammogram; 2022. Colonoscopy is UTD. Denies any family history of ovarian or colon cancer. FH breast maternal aunt. 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 Female Reproductive History Menstrual Total pregnancies: 2 Full term: 1 Number of Living Children: 1 Date of last pap smear: 10/23/18 (neg pap and hpv) Date of Mammogram: 10/19/22 (Birad 1) Review of Systems Const All systems reviewed & are unremarkable except as noted in HPI and below Reports as per HPI Eyes Reports no additional complaints ENT Reports no additional complaints Card Reports no additional complaints Resp Reports no additional complaints GI Reports as per HPI and Reports no additional complaints Reports as per HPI Musc Reports no additional complaints Skin/Breast Reports as per HPI Neuro Reports no additional complaints Psych Reports no additional complaints Endo Reports no additional complaints Anibal/Lymph Reports no additional complaints Aller/Immun Reports no additional complaints Physical Exam Vital Signs: Last Vital Signs BP 116/70 06/21/23 14:13 BMI result Body Mass Index 28.7 Const General: cooperative, healthy appearing, no acute distress, well developed and alert Orientation/consciousness: patient oriented x3 HEENT Head: Yes normal to inspection Eyes General: appearance normal, both eyes and all related structures Neck Neck: Yes normal visual inspection Thyroid: Thyroid normal Chest Chest palpation & inspection: normal inspection of the chest and other (no puckering, dimpling, peau de orange, retraction, discharge, masses) Breast/axilla inspection: normal inspection of the breasts Breast/axilla palpation: normal palpation of the breasts Resp Effort & Inspection: normal respiratory effort GI Inspection: Yes normal to inspection Palpation (GI): Soft to palpation Rectal Exam - Female: deferred General: Yes bladder normal to palpation External Female Exam: normal external appearance and normal appearance of the urethra Speculum Exam - Vagina: normal appearance of the vagina, normal palpation, normal vaginal discharge and vagina atrophic Speculum Exam - Cervix: normal appearance of the cervix and normal palpation Bimanual exam- vagina & uterus: normal bimanual exam, normal palpation, uterine size normal, bladder normal to palpation, normal palpation and non-tender Bimanual Exam- Adnexa, other: no masses Skin General skin exam: no rashes or lesions noted Rashes: no rashes Neuro General: patient oriented x3 Cognition (Neuro): normal cognition Extrem General: Yes normal to inspection Psych Attitude: cooperative Thought process: Normal thought process present Assessment & Plan Assessment & Plan (1) Encounter for well woman exam with routine gynecological exam: Code(s): Z01.419 - Encounter for gynecological examination (general) (routine) without abnormal findings Plan Discussed: Current recommendations for pap smears per ASCCP guidelines. Breast awareness, periodic self breast exams and yearly mammogram. Maintain a healthy lifestyle, well balanced diet including Calcium 1,200 mg and Vitamin D 600 IU daily, and routine exercise. Contact the office with any postmenopausal bleeding. Patient verbalizes understanding and agrees to the plan of care. She was given opportunity to ask questions and all questions were answered to the best of my ability. RTO in 1 year for annual digital manager exam. This note is constructed using voice recognition software. While every effort has been made to ensure accuracy, housekeeping aid errors may have been included.
[2023-06-21 14:13] VITALS: BP 116/70; BMI 28.7
== END 2023-06-21 15:00 | disposition home or self-care (01) ==
PROVIDERS: PCP Internal Medicine; Visit Provider Advanced Practice Midwife
DX: Z01.419 Encounter for gynecological examination (general) (routine) without abnormal findings (principal)
CPT/HCPCS: 99396

== ENCOUNTER → 2023-10-25 07:45 | Outpatient (BNV) | payer BC, SELFPAY | PROVIDERS: PCP Internal Medicine; Visit Provider Radiology Diagnostic Radiology | DX: Z12.31 Encounter for screening mammogram for malignant neoplasm of breast (principal) | CPT/HCPCS: 77063; 77067 ==

== ENCOUNTER 2023-10-25 07:53 | Outpatient (REF) | payer BC, SELFPAY ==
--- NOTE | ~2023-10-25 | MM_ITS ---
EXAMINATION: MM SCREENING DIGITAL BREAST TOMOSYNTHESIS, BILATERAL CLINICAL INFORMATION: Screening. Asymptomatic. COMPARISON: Mammography: This study is compared with prior exams dating back to 2019. TECHNIQUE: Digital breast tomosynthesis is performed in both the craniocaudal and mediolateral oblique views along with computer-aided detection (CAD). Synthesized 2D images are generated from the tomosynthesis. FINDINGS: There are scattered areas of fibroglandular density (ACR BI-RADS breast composition Category b). There are no significant masses, abnormal calcifications, or other abnormalities. MM/MM tomosynthesis screening BI IMPRESSION: No mammographic evidence of malignancy. ASSESSMENT: BI-RADS BI-RADS 1 - Negative RECOMMENDATION: Routine annual mammography screening. 1 year F/U This examination should not preclude the clinical evaluation of a suspicious palpable abnormality. This patient's information was entered into a reminder system with a target due date for their next mammogram. Electronically signed by: Paula Prasad MD 11/22/2023 09:14 AM EDT
== END 2023-10-25 07:54 | disposition home or self-care (01) ==
LOC: HO.MAMMO 07:53
PROVIDERS: PCP Internal Medicine; Visit Provider Internal Medicine
DX: Z12.31 Encounter for screening mammogram for malignant neoplasm of breast (principal)
CPT/HCPCS: 77063; 77067

== ENCOUNTER 2024-03-21 14:58 | Outpatient (REF) | payer BC, SELFPAY ==
--- NOTE | ~2024-03-21 | XR_ITS ---
EXAMINATION: XR CHEST 2 VIEWS HISTORY: cough COMPARISON: Comparison is made with the prior examination dated 01/19/2022. FINDINGS: PA and lateral views of the chest are submitted. The lungs are expanded and clear. There is no pleural effusion, pneumothorax, or pulmonary vascular congestion. The heart is normal in size. There is a small to moderate hiatal hernia. The bones are intact. XR/XR chest 2V IMPRESSION: Small to moderate hiatal hernia. No acute cardiopulmonary abnormality. Electronically signed by: Bronson Mcdaniel MD 03/21/2024 03:23 PM ANITHA
== END 2024-03-21 14:59 | disposition home or self-care (01) ==
LOC: HO.XRAY 14:58
PROVIDERS: PCP Internal Medicine; Visit Provider Internal Medicine
DX: R05.9 Cough, unspecified (principal)
CPT/HCPCS: 71046

== ENCOUNTER → 2024-03-21 15:05 | Outpatient (BNV) | payer BC, SELFPAY | PROVIDERS: PCP Internal Medicine; Visit Provider Radiology Diagnostic Radiology | DX: K44.9 Diaphragmatic hernia without obstruction or gangrene (principal) | CPT/HCPCS: 71046 ==

== ENCOUNTER 2024-04-12 10:34 | Outpatient (REF) | payer BC, SELFPAY ==
[2024-04-12 10:59] LABS: MANUAL DIFF FLAG NO
[2024-04-12 11:07] LABS: Basophils Percent Auto 0.5 % (0-2); Eosinophils Absolute Auto 0.1 X10*3/uL (0.0-0.4); Eosinophils Percent Auto 3.1 % (0-4); Hematocrit 38.3 % (37.0-47.0); Hemoglobin 12.9 g/dl (12.0-16.0); Imm Gran Abs Auto 0.02 X10*3/uL (0.00-0.03); Imm Gran Pct Auto 0.5 % (0.0-0.4); Lymphocytes Percent Auto 26.3 % (20-40); Mean Corpuscular HGB Conc 33.7 g/dl (31.0-35.0); Mean Corpuscular Hemoglobin 28.7 pg (27.0-33.0); Mean Corpuscular Volume 85.1 fL (80.0-98.0); Mean Platelet Volume 9.9 fL (9.4-12.3); Monocytes Absolute Auto 0.4 X10*3/uL (0.1-1.2); Monocytes Percent Auto 9.9 % (2-11); Neutrophils Absolute Auto 2.3 x10*3/uL (2.0-8.3); Neutrophils Percent Auto 59.7 % (45-73); Platelet Count 177 X10*3/uL (160-400); Red Cell Distribution Width 13.1 % (11.0-16.0); White Blood Count 3.9 X10*3/uL (4.8-10.8)
[2024-04-12 11:58] LABS: Alanine Aminotransferase 30 U/L (0-31); Albumin Level 4.2 g/dL (3.5-5.0); Alkaline Phosphatase 57 U/L (39-117); Anion Gap 12 (12-20); Aspartate Amino Transferase 32 U/L (5-31); Bilirubin Total 0.7 mg/dL (0.0-1.0); Blood Urea Nitrogen 13 mg/dL (9-16); Calcium 9.1 mg/dL (8.4-10.2); Carbon Dioxide 24 mmol/L (22-29); Chloride 110 mmol/L (96-108); Cholesterol 178 mg/dL (<200); Estimated Glomerular Filt Rate > 60; Glucose Fasting 103 mg/dL (60-99); HDL Cholesterol 35 mg/dL (>40); LDL Cholesterol Calculated 89 mg/dL (<100); Potassium 4.3 mmol/L (3.3-5.1); Sodium 142 mmol/L (135-145); Thyroid Stimulating Hormone 0.45 uIU/mL (0.32-4.0); Total Protein 6.8 g/dL (6.5-8.0); Triglycerides 270 mg/dL (<150)
[2024-04-13 08:54] LABS: Triiodothyronine T3 Free 3.4 pg/mL (2.3-4.2)
== END 2024-04-12 10:35 | disposition home or self-care (01) ==
LOC: HO.LAB 10:34
PROVIDERS: PCP Internal Medicine; Visit Provider Internal Medicine
DX: I10 Essential (primary) hypertension (principal); E03.9 Hypothyroidism, unspecified
CPT/HCPCS: 36415; 80053; 80061; 84443; 84481; 85025

== ENCOUNTER 2024-05-12 14:28 | Outpatient (AMB) | payer BC, SELFPAY ==
[2024-05-12 14:36] VITALS: BP 122/80; PULSE 84; RESP 16; TEMP 36.6; O2SAT 97; BMI 30.1
--- NOTE | 2024-05-12 14:36 | A.OFFPC_ITS ---
Vital Signs 05/12/24 14:36 Height 5 ft Weight 154 lb BMI 30.1 BP 122/80 Respiration 16 Pulse 84 Pulse Source Pulse Oximeter Temp 97.8 F Pulse Oximetry (%) 97 Oxygen Delivery Method Room Air Intake Visit Reasons: Routine Dust Mop Maker Required: No Accompanied by: Self / Same As Patient Allergies penicillin V Allergy (Mild, Verified 05/12/24 14:55) Rash Tobacco use date assessed: 05/12/24 Dental Screening Dental Screen Date: 05/12/24 Did you have a dental visit in the last 12 months?: Yes Did you have a dental problem in the last 6 months where you did not have access to dental care?: No PFSH Medical History (Updated 05/15/24 @ 19:16 by Jasiel Yanez MD) Seasonal allergies Elevated cholesterol HTN (hypertension) Hypothyroid Surgical History History of Hx of colonoscopy Family History Maternal Aunt History of breast cancer Social History Housing: House Alcohol intake: current Alcohol intake frequency: holidays/special occasions only Patient Tobacco Use Status: Former Tobacco user Years Smoked: 20 service: No Current occupational status: employed 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 1. Little interest or pleasure in doing things: not at all 2. Feeling down, depressed, or hopeless: not at all 3. Trouble falling or staying asleep, or sleeping too much: not at all 4. Feeling tired or having little energy: not at all 5. Poor appetite or overeating: not at all 6. Feeling bad about yourself - or that you are a failure or have let yourself or your family down: not at all 7. Trouble concentrating on things, such as reading the newspaper or watching television: not at all 8. Moving or speaking so slowly that other people could have noticed. Or the opposite - being so fidgety or restless that you have been moving around a lot more than usual: not at all 9. Thoughts that you would be better off or of hurting yourself in some way: not at all Total score: 0 Source: Developed by Drs. Bronson Jacome, Siri Craig, Zhou Suarez and colleagues, with an educational adamaris from [employer]. Thrive Questionnaire Date Thrive assessed: 05/12/24 I am a: Patient What is your living situation today?: I have a steady place to live Within the past 12 months, did the food you bought not last and you didn't have the money to get more?: Never true Within the past 12 months, did you worry whether your food would run out before you got money to buy more?: Never true Do you have trouble paying for medicines?: No Do you have trouble getting transportation to medical appointments?: No Do you have trouble paying your heating and electricity bill?: No Do you have trouble taking care of your child, family member or friend?: No Do you have trouble with day-to-day activities such as bathing, preparing meals, shopping, managing finances, etc.?: No Are you currently unemployed and looking for a job?: No Are you interested in more education?: No THRIVE Score: 0 AUDIT C Alcohol Use Questionnaire (AUDIT-C) 1. How often do you have a drink containing alcohol?: Monthly or less 2. How many drinks containing alcohol do you have on a typical day when you are drinking?: 1 or 2 3. How often do you have six or more drinks on one occasion?: Never Total Score: 1 NEELAM-7 AMB Questionnaire NEELAM-7 Date NEELAM - 7 assessed: 05/12/24 Feeling nervous, anxious, or on edge: 0 = Not at all Not being able to stop or control worryin = Not at all Worrying too much about different things: 0 = Not at all Trouble relaxin = Not at all Being so restless that it is hard to sit still: 0 = Not at all Becoming easily annoyed or irritable: 0 = Not at all Feeling afraid as if something awful might happen: 0 = Not at all Total NEELAM-7 score (0-4 normal; 5-9 mild; 10-14 moderate; 15-21 severe): 0 Source: Developed by Siri Perez.W. Rafa, Zhou Suarez and colleagues, with an educational adamaris from [employer]. Physical exam (Primary Care) Vital Signs: Last Vital Signs Temp 97.8 F 05/12/24 14:36 Pulse 84 05/12/24 14:36 Resp 16 05/12/24 14:36 BP 122/80 05/12/24 14:36 Pulse Ox 97 05/12/24 14:36 Oxygen Delivery Method Room Air 05/12/24 14:36 BMI result Body Mass Index 30.1 Tobacco/Smoking Status: Tobacco use Status Tobacco use date assessed 05/12/24 05/12/24 14:58 Patient Tobacco Use Status Former Tobacco user 05/12/24 14:37 PHQ-9: PHQ-9 Score PHQ-9: Total score 0 05/12/24 14:58 Thrive Assessment: Date of Thrive Assessment Date Thrive assessed 05/12/24 05/12/24 14:58 Coding Level of Care Code New Pt Level 4 (15913) Complex EM visit Add On G2211 Diagnoses HTN (hypertension) I10 Assessment & Plan Assessment & Plan (1) HTN (hypertension): Code(s): I10 - Essential (primary) hypertension Category: Medical Plan: History of Present Illness The patient is a 58-year-old female presenting with concerns of recurrent sinusitis and management issues related to atopic dermatitis. She reports having bouts of sinus pressure and pain, particularly during the winter months, that often follow minor colds. A previous episode involved a persistent cough, successfully treated with antibiotics and steroids. Presently, she describes experiencing sinus pressure without significant nasal discharge or cough. Her history includes atopic dermatitis that seldom affects her scalp but recently presented with red patches following a completed antibiotic and steroid regimen. An earlier evaluation by a air gun operator provided no specific findings due to the resolved state of dermatitis at the visit. Furthermore, her medical history reveals recurrent diverticulitis, necessitating quarter-yearly reviews and lifestyle adjustments. She mentions fluctuations in thyroid function tests and elevating cholesterol levels, both of which have been monitored with therapeutic interventions. Her blood pressure remains stable on lisinopril, and she attends regular mammograms and colonoscopies, adhering to preventive health guidelines. 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 - Adjusts her exercise routine to seasonally accommodate outdoor activities. - Maintains a cautious approach to diet, especially in periods of reduced phys ical exertion. Review of Systems - Endocrine: Reports thyroid function variability. - Cardiovascular: Denies adverse symptoms; hypertension is controlled. - Respiratory: Reports recurrent sinusitis with associated pressure and pain. - Dermatologic: Reports red, inflamed patches on scalp due to atopic dermatitis. Physical Exam General: Appearance normal, both eyes and all related structures Nutritional Appearance: Well nourished Orientation/consciousness: Patient oriented x3 Limitations: No limitations Head: Normal to inspection, but reports of pressure and pain in sinus area Neck: Normal visual inspection Chest: Normal palpation of entire chest wall Respiratory: Normal respiratory effort, but history of cough after colds Neurology: Patient oriented x3 Results - Labs: Recent thyroid function tests indicated minor variability with no significant abnormalities. - Cholesterol levels fluctuate but are monitored. Plan Antibiotics have been prescribed for the suspected recurrent sinusitis. Appropriate dermatological treatment, in the form of medicated shampoo, will address the patient's atopic dermatitis on the scalp. The patient's chronic conditions, including diverticulitis, thyroid variability, and hypercholesterolemia, will continue to be closely monitored. Dietary and lifestyle recommendations have been discussed, notably concerning exercise fluctuations due to seasonal factors. Preventive screenings such as mammograms and colonoscopies remain in place, with due dates acknowledged. Patient was informed and verbally consented to the use of an ambient scribe for clinic note documentation during this visit. Discussion Notes I discussed with the patient her diagnosis of recurrent sinusitis, emphasizing the importance of adhering to the prescribed antibiotics. We reviewed the management plan for atopic dermatitis, introducing a prescription shampoo to minimize scalp inflammation. I highlighted the necessity of ongoing monitoring for her thyroid and cholesterol levels, recommending continued lifestyle and dietary assessments to optimize her health outcomes. We also addressed the importance of maintaining regular exercise, especially as warmer weather approac hes, to help manage her conditions effectively. Continued adherence to preventive health screenings was reinforced. Patient Instructions - Take prescribed antibiotics as directed for sinusitis. - Use prescribed medicated shampoo as instructed for scalp care. - Monitor thyroid function and attend follow-up appointments regularly. - Maintain a healthy diet, focusing on lean proteins and vegetables. - Exercise regularly, adjusting activities with seasonal changes. - Adhere to scheduled preventive screenings, including mammograms and colonoscopies. Medications: New azithromycin take 500 mg today (day 1), then 250 mg for 4 days (days 2-5) PO 6 tabs 0RF ketoconazole 2% 1 appl topical 3XW 120 mL 1RF
== END 2024-05-12 15:25 | disposition home or self-care (01) ==
LOC: HO.HMCHD 14:28
PROVIDERS: PCP Internal Medicine; Visit Provider Internal Medicine
DX: I10 Essential (primary) hypertension (principal)

== ENCOUNTER 2024-06-26 08:11 | Outpatient (REF) | payer BC, SELFPAY ==
[2024-06-26 16:44] LABS: Bacterial Vaginosis PCR NEGATIVE (Negative); Candida Group PCR NOT DETECTED (Not Detect); Candida glab krusei PCR NOT DETECTED (Not Detect); Trichomonas vaginalis PCR NOT DETECTED (Not Detect)
== END 2024-06-26 08:12 | disposition home or self-care (01) ==
LOC: HO.LAB 08:11
PROVIDERS: PCP Internal Medicine; Visit Provider Advanced Practice Midwife
DX: N89.8 Other specified noninflammatory disorders of vagina (principal)
CPT/HCPCS: 81515

== ENCOUNTER 2024-06-26 08:11 | Outpatient (AMB) | payer BC, SELFPAY ==
--- NOTE | 2024-06-26 08:13 | A.OFFVIS_ITS ---
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 She is doing well with sausage inspector concerns. Currently not sexually active. Denies any vaginal dryness or irritation. Attempting to eat a healthy diet with calcium and vitamin D and stays active with exercise. Last pap smear; 2023, negative. Last mammogram; 2023. Colonoscopy is UTD. Denies any family history of breast, ovarian or colon cancer. 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 Cognitive needs: No Hearing needs: No Vision needs: Yes Female Reproductive History Menstrual Total pregnancies: 2 Full term: 1 Number of Living Children: 1 Date of last pap smear: 06/21/23 (neg pap and hpv) Date of Mammogram: 10/25/23 (Birad 1) Review of Systems Const All systems reviewed & are unremarkable except as noted in HPI and below Reports as per HPI Eyes Reports no additional complaints ENT Reports no additional complaints Card Reports no additional complaints Resp Reports no additional complaints GI Reports as per HPI and Reports no additional complaints Reports as per HPI Musc Reports no additional complaints Skin/Breast Reports as per HPI Neuro Reports no additional complaints Psych Reports no additional complaints Endo Reports no additional complaints Anibal/Lymph Reports no additional complaints Aller/Immun Reports no additional complaints Physical Exam Vital Signs: Last Vital Signs BP 110/70 06/26/24 08:15 BMI result Body Mass Index 29.9 Const General: cooperative, healthy appearing, no acute distress, well developed and alert Orientation/consciousness: patient oriented x3 HEENT Head: Yes normal to inspection Eyes General: appearance normal, both eyes and all related structures Neck Neck: Yes normal visual inspection Thyroid: Thyroid normal Chest Chest palpation & inspection: normal inspection of the chest and other (no puckering, dimpling, peau de orange, retraction, discharge, masses) Breast/axilla inspection: normal inspection of the breasts Breast/axilla palpation: normal palpation of the breasts Resp Effort & Inspection: normal respiratory effort GI Inspection: Yes normal to inspection Palpation (GI): Soft to palpation Rectal Exam - Female: deferred General: Yes bladder normal to palpation External Female Exam: normal external appearance and normal appearance of the urethra Speculum Exam - Vagina: normal appearance of the vagina, normal palpation, normal vaginal discharge and vagina atrophic Speculum Exam - Cervix: normal appearance of the cervix and normal palpation Bimanual exam- vagina & uterus: normal bimanual exam, normal palpation, uterine size normal, bladder normal to palpation, normal palpation and non-tender Bimanual Exam- Adnexa, other: no masses Skin General skin exam: no rashes or lesions noted Rashes: no rashes Neuro General: patient oriented x3 Cognition (Neuro): normal cognition Extrem General: Yes normal to inspection Psych Attitude: cooperative Thought process: Normal thought process present Assessment & Plan Assessment & Plan (1) Encounter for well woman exam with routine gynecological exam: Code(s): Z01.419 - Encounter for gynecological examination (general) (routine) without abnormal findings Category: Medical Plan Discussed: Current recommendations for pap smears per ASCCP guidelines. Breast awareness, periodic self breast exams and yearly mammogram. Maintain a healthy lifestyle, well balanced diet including Calcium 1,200 mg and Vitamin D 600 IU daily, and routine exercise. Contact the office with any postmenopausal bleeding. Patient verbalizes understanding and agrees to the plan of care. She was given opportunity to ask questions and all questions were answered to the best of my ability. RTO in 1 year for annual sausage inspector exam. This note is constructed using voice recognition software. While every effort has been made to ensure accuracy, sheet pile hammer operator errors may have been included. Orders: Orders MM tomosynthesis screening BI Today Z12.31 - Encounter for screening mammogram for malignant neoplasm of breast Coding Level of Care Code Est Pt Prev Care 40-64y(83715) Diagnoses Encounter for well woman exam with routine gynecological exam Z01.419
[2024-06-26 08:15] VITALS: BP 110/70; BMI 29.9
== END 2024-06-26 09:45 | disposition home or self-care (01) ==
LOC: HO.HWS 08:11
PROVIDERS: PCP Internal Medicine; Visit Provider Advanced Practice Midwife
DX: Z01.419 Encounter for gynecological examination (general) (routine) without abnormal findings (principal)
CPT/HCPCS: 99396; 99459

== ENCOUNTER 2024-07-07 10:05 | Outpatient (AMB) | payer BC, SELFPAY ==
[2024-07-07 10:08] VITALS: BP 118/70; PULSE 77; TEMP 36.3; O2SAT 96; BMI 29.7
--- NOTE | 2024-07-07 10:08 | A.OFFPC_ITS ---
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 Required: No Accompanied by: Self / Same As Patient Allergies penicillin V Allergy (Mild, Verified 07/07/24 10:09) Rash Tobacco use date assessed: 07/07/24 Dental Screening Dental Screen Date: 07/07/24 Did you have a dental visit in the last 12 months?: Yes Did you have a dental problem in the last 6 months where you did not have access to dental care?: No PFSH Medical History (Updated 07/07/24 @ 10:32 by Jasiel Yanez MD) Seborrheic dermatitis Seasonal allergies Elevated cholesterol HTN (hypertension) Hypothyroid Surgical History History of Hx of colonoscopy (~04/21/20) Family History (Updated 07/07/24 @ 10:17 by Bruna Galindo MA) Maternal Aunt History of breast cancer Mother No problems noted. Father No problems noted. 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 1. Little interest or pleasure in doing things: not at all 2. Feeling down, depressed, or hopeless: not at all 3. Trouble falling or staying asleep, or sleeping too much: not at all 4. Feeling tired or having little energy: not at all 5. Poor appetite or overeating: not at all 6. Feeling bad about yourself - or that you are a failure or have let yourself or your family down: not at all 7. Trouble concentrating on things, such as reading the newspaper or watching television: not at all 8. Moving or speaking so slowly that other people could have noticed. Or the opposite - being so fidgety or restless that you have been moving around a lot more than usual: not at all 9. Thoughts that you would be better off or of hurting yourself in some way: not at all Total score: 0 Source: Developed by Drs. Bronson Jacome, Siri Craig, Zhou Suarez and colleagues, with an educational adamaris from [employer]. Thrive Questionnaire Date Thrive assessed: 07/07/24 I am a: Patient Within the past 12 months, did the food you bought not last and you didn't have the money to get more?: Never true Within the past 12 months, did you worry whether your food would run out before you got money to buy more?: Never true Do you have trouble paying for medicines?: No Do you have trouble getting transportation to medical appointments?: No Do you have trouble paying your heating and electricity bill?: No Do you have trouble taking care of your child, family member or friend?: No Are you currently unemployed and looking for a job?: No Are you interested in more education?: No THRIVE Score: 0 AUDIT C Alcohol Use Questionnaire (AUDIT-C) 1. How often do you have a drink containing alcohol?: Monthly or less 2. How many drinks containing alcohol do you have on a typical day when you are drinking?: 1 or 2 3. How often do you have six or more drinks on one occasion?: Less than monthly Total Score: 2 NEELAM-7 AMB Questionnaire NEELAM-7 Date NEELAM - 7 assessed: 07/07/24 Feeling nervous, anxious, or on edge: 0 = Not at all Not being able to stop or control worryin = Not at all Worrying too much about different things: 0 = Not at all Trouble relaxin = Not at all Being so restless that it is hard to sit still: 0 = Not at all Becoming easily annoyed or irritable: 0 = Not at all Feeling afraid as if something awful might happen: 0 = Not at all Total NEELAM-7 score (0-4 normal; 5-9 mild; 10-14 moderate; 15-21 severe): 0 Source: Developed by Siri PerezW. Rafa, Zhou Suarez and colleagues, with an educational adamaris from [employer]. Physical exam (Primary Care) Vital Signs: Last Vital Signs Temp 97.3 F 07/07/24 10:08 Pulse 77 07/07/24 10:08 BP 118/70 07/07/24 10:08 Pulse Ox 96 07/07/24 10:08 Oxygen Delivery Method Room Air 07/07/24 10:08 BMI result Body Mass Index 29.7 Tobacco/Smoking Status: Tobacco use Status Tobacco use date assessed 07/07/24 07/07/24 10:10 Patient Tobacco Use Status Former Tobacco user 07/07/24 10:10 e-Cigarette/Vaping Use Former Use 07/07/24 10:10 PHQ-9: PHQ-9 Score PHQ-9: Total score 0 07/07/24 10:10 Thrive Assessment: Date of Thrive Assessment Date Thrive assessed 07/07/24 07/07/24 10:10 Coding Level of Care Code Est Pt Level 4 (32733) Complex EM visit Add On G2211 Diagnoses Seborrheic dermatitis L21.9 Assessment & Plan Assessment & Plan (1) Seborrheic dermatitis: Code(s): L21.9 - Seborrheic dermatitis, unspecified Category: Medical Plan: Tapering dose of prednisone. Dermatology referral made. Plan History of Present Illness The patient is a 58-year-old female presenting with a request for a dermatology referral and for the management of persistent scalp dermatitis. The outbreaks began around the time she experienced a cough when she saw Dr. Reyes in March. At that time, the itchiness subsided temporarily with prednisone, only to return post therapy. Present interventions, including beclamethazone ointment and 2% hydrocortisone, have provided brief symptomatic treatments but caused greasy santos ir with minimal dermatological improvement. Despite treatment, the dermatitis has become more prominent, with previous advice from Dr. Munoz now on hold due to her maternity leave. This leads the p atient to revisit solutions while experiencing severe itching that persists. Social History - No specific social determinants of health were discussed during this visit. Review of Systems - Skin: Reports itching and excoriating lesions on the scalp. - Respiratory: Denies ongoing issues related to past cough. Physical Exam General: Cooperative and healthy appearing Nutritional Appearance: Well nourished Orientation/consciousness: Patient oriented x3 Limitations: No limitations Head: Normal to inspection General: Appearance normal, both eyes and all related structures Neck: Normal visual inspection Chest: Normal palpation of entire chest wall Respiratory: Patient reports a history of cough that was previously managed with prednisone, which resolved the symptoms temporarily. ormal respiratory effort Neurology: Patient oriented x3 Scalp: excoriating rash on the temporal side of the scalp with overlying scales. Results Plan 1. Dermatitis Of The Scalp - Referral initiated to [facility]. - Prednisone prescribed short-term for symptomatic relief of itchiness. - Discuss effectiveness and limitations of previously used shampoos and ointments. 2. Cough Resolved - No further action as the episode has resolved. Discussion Notes I discussed with the patient the need for a referral to a floor covering installer at [facility] due to persistent dermatitis of the scalp and the extended leave of her current physician, Dr. Munoz. We reviewed the temporary benefits and limitations of prednisone, noting it as a short-term measure, and highli ghted the ineffective relief from previous treatments including hydrocortisone and methazone ointments. The patient is informed that prednisone may temporarily alleviate symptoms but cannot be prolonged beyond ten days. Reservations regarding self-management were encouraged, and a commitment to arranging the dermatology consultation was made, with encouragement to confirm a follow-up at my office within six months or if concerning symptoms prevail. The relevance of monitoring for any adverse effects of prednisone use was underscored, ensuring understanding of follow-up protocols. Patient Instructions - Take prednisone as prescribed for short-term relief from itching. - Attend the dermatology appointment once scheduled. - Monitor for any worsening of symptoms or side effects from prednisone. - Continue current scalp care as instructed until further dermatological guidance. - Contact the office if there are any emergent issues before the dermatology appointment. - Return for follow-up care or earlier if symptoms persist or worsen. Orders: Referrals Dermatology Referral L21.9 - Seborrheic dermatitis, unspecified
== END 2024-07-07 10:30 | disposition home or self-care (01) ==
LOC: HO.HMCHD 10:05
PROVIDERS: PCP Internal Medicine; Visit Provider Internal Medicine
DX: L21.9 Seborrheic dermatitis, unspecified (principal)

== ENCOUNTER → 2024-07-07 10:05 | Outpatient (BNVA) | payer BC, SELFPAY | PROVIDERS: PCP Internal Medicine; Visit Provider Internal Medicine ==

== ENCOUNTER → 2024-10-30 16:30 | Outpatient (BNV) | payer BC, SELFPAY | PROVIDERS: Visit Provider Internal Medicine | DX: Z12.31 Encounter for screening mammogram for malignant neoplasm of breast (principal) | CPT/HCPCS: 77063; 77067 ==

== ENCOUNTER 2024-10-30 16:36 | Outpatient (REF) | payer BC, SELFPAY ==
--- NOTE | ~2024-10-30 | MM_ITS ---
EXAMINATION: MM SCREENING DIGITAL BREAST TOMOSYNTHESIS, BILATERAL CLINICAL INFORMATION: Screening. Asymptomatic. COMPARISON: Mammography: Comparison is made with available priors TECHNIQUE: Digital breast mammography with tomosynthesis is performed in both the craniocaudal and mediolateral oblique views along with computer-aided detection (CAD). FINDINGS: There are scattered areas of fibroglandular density (ACR BI-RADS breast composition Category b). There are no significant masses, abnormal calcifications, or other abnormalities. MM/MM tomosynthesis screening BI IMPRESSION: No mammographic evidence of malignancy. ASSESSMENT: BI-RADS BI-RADS 1 - Negative RECOMMENDATION: Routine annual mammography screening. 1 year F/U This examination should not preclude the clinical evaluation of a suspicious palpable abnormality. This patient's information was entered into a reminder system with a target due date for their next mammogram. Electronically signed by: Katy Fletcher DO 11/04/2024 12:24 PM EDT
--- OUTSIDE RECORDS SUMMARY | 2024-10-30 16:38 | XMS_ITS | Patient Health Record ---
Author Organization [facility] Address [address] [place] [address] Care Team Providers Care Nibbler Operator Name Role Phone Zenon (RETIRED) Dallin ANDRADE Primary Care Provide Bronson Bronson [phone] Allergies Allergen (clinical drug ingredient) Drug/Non Drug Allergy documented on EMR Reaction Allergy Type Onset Date Status Penicillin Unknown Drug Allergy Active Reason For Referral No Information Medications Medication SIG (Take, Route, Frequency, Duration) Notes Start Date End Date Status Tylenol PRN Active Metamucil Active Levothroid Active Claritin Active Lisinopril Active Simvastatin Active Immunizations Vaccine Route Administration Date Status Comme nts Influenza Unknown 12/04/2018 Administered Social History Tobacco Use: Social History Observation Description Date Details (start date - stop date) Former Smoker NA - NA Tobacco Use/Smoking Question Answer Notes Patient is a former smoker Alcohol Screen Question Answer Notes Did you have a drink contain ing alcohol in the past year? Yes How often did you have a dri nk containing alcohol in the past year? Monthly or less (1 point) How many drinks did you have on a typical day when you were drinking in the past year? 1 or 2 drinks (0 point) Points 1 Interpretation Negative Section Notes: Nonsmoker; no sig alcohol Nonsmoker; no sig alcohol Problems Problem Type SNOMED Code ICD Code Onset Dates Problem Status W/U Status Risk Notes Problem 674222247 Encounter for screening for malignant neoplasm of colon (Z12.11) Active confirmed Problem 089883479 History of adenomatous polyp of colon (Z86.010) Active confirmed Problem [id number] Preprocedural examination (Z01.818) Active confirmed Plan Of Treatment Future Test Test Name Order Date COLONOSCOPY 04/01/2014 COLONOSCOPY 11/26/2019 Insurance Providers Payer Name Payer Address Payer Phone Subscriber Number Group Number Insured Name Patient Relationship to Insured Coverage Start Date Coverage End Date [facility] [address] [place] [address] [id number] [place] Self - patient is the insured Medical (General) History Medical History History ICD Code Denies MA,DM,CVA,Lung disease,renal dise ase HTN Hypothyroidism Hyperlipidemia Seasonal allergies Diverticulitis(presumed) 2018-treated with outpatient antibiotics with good relief--she did not have a CAT scan Colonoscopy 10/2014 with a sm all tubular adenoma removed, mild sigmoid diverticulosis Surgical History Surgery Date(Month/Year)
== END 2024-10-30 16:37 | disposition home or self-care (01) ==
LOC: HO.MAMMO 16:36
PROVIDERS: Visit Provider Advanced Practice Midwife
DX: Z12.31 Encounter for screening mammogram for malignant neoplasm of breast (principal)
CPT/HCPCS: 77063; 77067

== ENCOUNTER 2024-11-24 15:51 | Outpatient (AMB) | payer BC, SELFPAY ==
--- NOTE | 2024-11-24 15:53 | MHC.PC.OV ---
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 Required: No Accompanied by: Self / Same As Patient Allergies penicillin V Allergy (Mild, Verified 11/24/24 15:53) Rash Medication List - Last Reconciled 11/24/24 by Sree Rudd MD betamethasone dipropionate 0.05% 1 appl topical BID fluticasone propionate 50 mcg/actuation (Flonase Allergy Relief) 1 spray intranasal DAILY hydrocortisone 2.5% topical levothyroxine 100 mcg PO DAILY lisinopril 5 mg PO DAILY loratadine (Claritin) 10 mg PO DAILY simvastatin 20 mg PO DAILY Tobacco use date assessed: 07/07/24 Dental Screening Dental Screen Date: 11/24/24 Did you have a dental visit in the last 12 months?: Yes Did you have a dental problem in the last 6 months where you did not have access to dental care?: No Was dental information given to patient?: Patient has dentist HPI HPI Comments History of Present Illness Details The patient is a 59-year-old female presenting with foot pain and evaluation of a newly discovered bunion on the left foot. The patient reports experiencing problems with her left foot, noting the development of a big bump, consistent with a bunion, which was noticed after wearing new shoes purchased by her . The patient also describes pain on the top of the left foot, which intensifies after engaging in exercise, particularly Aleksander, hinting at possible stress or arthritis. The foot pain is persistent but exacerbates with increased activity, while regular walking is not problematic. This issue appears isolated to one pair of exercise shoes, speculating inadequate support as a contributing factor. Additionally, the patient reports intermittent lower back pain, particularly when getting up after sitting for extended periods, particularly on hard surfaces. She attributes this onset to aging, experiencing stiffness upon straightening up after such activities. Medical History: - Essential Hypertension - Hyperlipidemia - Hypothyroidism Medications: - Lisinopril 5 mg for Essential Hypertension - Simvastatin 20 mg for Hyperlipidemia - Levothyroxine 100 mcg for Hypothyroidism - Flonase (for nasal symptoms) Diagnostic Results: - Labs: Elevated cholesterol and triglycerides; Minor elevation in liver enzymes. - Medical Imaging/Diagnostics: Mammogram presented mixed tissue, expressed as 'hypertension', with no significant concern as per recent consult. Social: - Exercise: The patient engages in Aleksander as her chosen physical activity. - Nutrition: Recently attempted a Mediterranean diet but lapsed; admitted reintroduction of potato chips and ice cream led to weight gain and increased cholesterol levels, indicating dietary challenges. - Alcohol and Tobacco Use: Reports abstaining from alcohol. [facility] Medical History (Updated 11/24/24 @ 16:17 by Sree Rudd MD) Hallux valgus (acquired), left foot Foot pain Hyperlipidemia Seborrheic dermatitis Seasonal allergies Elevated cholesterol HTN (hypertension) Hypothyroid Surgical History History of Hx of colonoscopy (~04/21/20) Family History (Updated 07/07/24 @ 10:17 by Bruna Galindo MA) Maternal Aunt History of breast cancer Mother No problems noted. Father No problems noted. 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 How often do you have a drink containing alcohol?: Monthly or less 2. How many drinks containing alcohol do you have on a typical day when you are drinking?: 1 or 2 Total Score: 1 NEELAM-7 AMB Questionnaire NEELAM-7 Date NEELAM - 7 assessed: 07/07/24 Source: Developed by Drs. Bronson Jacome, Siri Craig, Zhou Suarez and colleagues, with an educational adamaris from [employer]. Review of Systems Const Details: - Musculoskeletal: Reports pain in the left foot and lower back; Denies chronic severe pain. - Cardiovascular: Denies chest pain or discomfort. - Neurological: Denies headaches. - Gastrointestinal: Denies nausea, vomiting. - Respiratory: Denies shortness of breath. - Genitourinary: Reports normal urination and bowel movements. All systems reviewed & are unremarkable except as reviewed in HPI and above Physical exam (Primary Care) Vital Signs: Last Vital Signs Temp 97.7 F 11/24/24 15:58 Pulse 88 11/24/24 15:58 Resp 17 11/24/24 15:58 BP 110/78 11/24/24 15:58 Pulse Ox 97 11/24/24 15:58 Oxygen Delivery Method Room Air 11/24/24 15:58 BMI result Body Mass Index 29.1 Tobacco/Smoking Status: Tobacco use Status Tobacco use date assessed 07/07/24 11/24/24 16:01 Patient Tobacco Use Status Former Tobacco user 11/24/24 16:01 e-Cigarette/Vaping Use Former Use 11/24/24 16:01 Thrive Assessment: Date of Thrive Assessment Date Thrive assessed 07/07/24 11/24/24 16:01 Const Other: General: +Alert and oriented, Well nourished, No acute distress. Eye: Pupils are equal, round and reactive to light, Intact accommodation, Extraocular movements are intact, Normal conjunctiva, Vision unchanged. HENT: Normocephalic, Atraumatic, Tympanic membranes are clear, Normal hearing, Oral mucosa is moist, No pharyngeal erythema, Ear canals patent. Respiratory: Lungs CTA bilaterally, No wheeze, Respirations are non-labored. Cardiovascular: Regular rate, Regular rhythm, S1 auscultated, S2 auscultated, No murmur, Good pulses equal in all extremities, Normal peripheral perfusion, No edema. Gastrointestinal: Soft, Non-tender, Non-distended, Normal bowel sounds, No organomegaly. Musculoskeletal: Normal range of motion, Normal strength, No tenderness, No swelling, No deformity, Normal gait. Noted bunion on the left foot with pain on the top of the foot, especially after exercise. Integumentary: Warm, Dry, [place], Intact. Neurologic: Alert, Oriented, Normal sensory, Normal motor function, No focal defects, Cranial Nerves II-XII are grossly intact, Normal deep tendon reflexes. Psychiatric: Cooperative, Appropriate mood & affect, Normal judgment. Coding Level of Care Code Est Pt Level 4 (32551) Complex EM visit Add On G2211 Diagnoses Primary hypertension I10 Hypertension type: primary hypertension Acquired hypothyroidism E03.9 Hypothyroidism type: acquired Hyperlipidemia, unspecified hyperlipidemia type E78.5 Hyperlipidemia type: unspecified Hallux valgus (acquired), left foot M20.12 Left foot pain M79.672 Laterality: left Assessment & Plan Assessment & Plan (1) HTN (hypertension): Comment: - Maintained on Lisinopril 5 mg given stable blood pressure measurements. Code(s): I10 - Essential (primary) hypertension Category: Medical Qualifiers: Hypertension type: primary hypertension Qualified Code(s): I10 - Essential (primary) hypertension (2) Hypothyroid: Comment: - Requested repeat of TSH to ensure stability and correct dosing of Levothyroxine. - Continued Levothyroxine 100 mcg daily, advising morning use on an empty stomach for optimal absorption. Code(s): E03.9 - Hypothyroidism, unspecified Category: Medical Qualifiers: Hypothyroidism type: acquired Qualified Code(s): E03.9 - Hypothyroidism, unspecified (3) Hyperlipidemia: Comment: - Proposed transition from Simvastatin to Atorvastatin due to unsatisfactory management of triglycerides. Code(s): E78.5 - Hyperlipidemia, unspecified Category: Medical Qualifiers: Hyperlipidemia type: unspecified Qualified Code(s): E78.5 - Hyperlipidemia, unspecified (4) Hallux valgus (acquired), left foot: Comment: - Causing pain on ambulation. Appreciated on exam - Recommended referral to a ornamental metal erector apprentice for further assessment and management. - Advised changing exercise shoes to evaluate if symptoms decrease with improved support. Code(s): M20.12 - Hallux valgus (acquired), left foot Category: Medical (5) Foot pain: Comment: - Suggested shoe modification to provide better support and alleviate pain. - Discussed potential stress from Aleksander as a contributing factor; advised monitored activity levels. Code(s): M79.673 - Pain in unspecified foot Category: Medical Qualifiers: Laterality: left Qualified Code(s): M79.672 - Pain in left foot Plan: Health maintenance: - Discussed dietary management adjustments to reduce processed food intake and focus on healthy eating habits to control cholesterol. - Explored importance of routine physical activity for musculoskeletal strength and overall well-being. - Emphasized regular thyroid screening to ensure continued appropriate management of hypothyroidism. - Scheduled routine cholesterol evaluation to assess the effectiveness of medication adjustments. Patient was informed and verbally consented to the use of an ambient scribe for clinic note documentation during this visit. Plan I explained the likely development of a bunion on the patient's left foot due to recent changes in footwear, supporting the need for a podiatry referral to explore treatment options. We reviewed the heightened foot pain after Aleksander and proposed altering shoes for potentially improved comfort and support. The patient's blood work indicated the requirement to switch from Simvastatin to Atorvastatin for better cholesterol control and adding Fenofibrate to target triglycerides. A stable blood pressure was commended, with Lisinopril continued. For hypothyroidism, I suggested TSH retesting to confirm current Levothyroxine dosing, with a noted need for morning administration on an empty stomach for optimal results. A practical understanding of foot pain associated with activity was addressed with a proposed shoe change and manageable Aleksander sessions. I further encouraged lifestyle modifications for improved back pain management, promoting exercises and supporting back health preservation. We discussed risk reduction via nutritional interventions to better target lipid values and stressed upcoming laboratory visits as non-fasting measures now apply. Orders: Orders Hemoglobin A1c Today I10 - Essential (primary) hypertension TSH reflex Free T4 Today E03.9 - Hypothyroidism, unspecified Referrals Podiatry Referral M79.673 - Pain in unspecified foot Medications: New atorvastatin (Lipitor) 20 mg PO BEDTIME 90 tabs 0RF 90 days Discontinued simvastatin Discontinued Reason: Doctor's Order 20 mg PO DAILY 90 tabs 1RF Patient Instructions: - Check and change your shoes to see if they are causing foot pain. - Schedule breathing time exercises daily to help back pain from getting worse. - Keep doing Aleksander, but notice if any shoes hurt your foot more. - Take your thyroid medicine impregnator and drier without food for best results. - Go to the lab across the street when you can to update your A1c level. - Ask your partner to contact the clinic if there are any questions about his chest checks. - Expect a call from a cardiac nurse specialist about your bunion care. - Don't forget to eat healthy and try to avoid too many snacks and processed foods.
[2024-11-24 15:58] VITALS: BP 110/78; PULSE 88; RESP 17; TEMP 36.5; O2SAT 97; BMI 29.1
== END 2024-11-24 16:18 | disposition home or self-care (01) ==
LOC: HO.HMCHD 15:52
PROVIDERS: PCP Student in an Organized Health Care Education/Training Program; Visit Provider Student in an Organized Health Care Education/Training Program
DX: I10 Essential (primary) hypertension (principal); E03.9 Hypothyroidism, unspecified; E78.5 Hyperlipidemia, unspecified; M20.12 Hallux valgus (acquired), left foot; M79.672 Pain in left foot

== ENCOUNTER 2024-11-24 15:51 | Outpatient (REF) | payer BC, SELFPAY ==
[2024-11-24 18:54] LABS: Free T4 (Free Thyroxine) 1.23 ng/dL (0.71-1.85)
== END 2024-11-24 15:52 | disposition home or self-care (01) ==
LOC: HO.LAB 15:51
PROVIDERS: PCP Student in an Organized Health Care Education/Training Program; Visit Provider Student in an Organized Health Care Education/Training Program
DX: I10 Essential (primary) hypertension (principal); E03.9 Hypothyroidism, unspecified; E78.5 Hyperlipidemia, unspecified; M20.12 Hallux valgus (acquired), left foot; M79.672 Pain in left foot
CPT/HCPCS: 36415; 83036; 84439; 84443

== ENCOUNTER 2025-01-12 08:07 | Outpatient (AMB) | payer BC, SELFPAY ==
[2025-01-12 08:13] VITALS: BMI 29.3
--- NOTE | 2025-01-12 08:13 | A.OFFVIS_ITS ---
Vital Signs 01/12/25 08:13 Height 5 ft Weight 150 lb BMI 29.3 Intake Visit Reasons: Bunion/left bilateral foot Intake Note: Monse is a 59 year old female who presents today as a new patient for an evaluation of her left foot bunion. Patient states she noticed her bunion recently in the summer and she has tried toe separators and has found no relief for her symptoms. She noticed a discomfort where her bunion is located. Allergies penicillin V Allergy (Mild, Verified 01/12/25 08:14) Rash HPI HPI Bunion/left bilateral foot: Details: The patient is a 59-year-old female past medical history of hypertension presenting with left foot pain and with concerns about toenail changes. The patient reports the onset of a bump on her left foot at the beginning of the summer, initially without pain, but now experiencing occasional soreness. She has been actively participating in [employer] over the past year, which has also resulted in pain on the top of her foot, likely due to increased activity. The patient has a history of thickened and ingrown toenails on her big toes. The patient also reports a history of plantar fasciitis, for which she uses a sleeve to manage swelling and provide cushioning. 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 - Exercise: The patient participates in [employer] regularly. [facility] Medical History (Updated 01/12/25 @ 08:51 by Charles Guevara DPM) Hallux valgus (acquired), left foot Foot pain Hyperlipidemia Seborrheic dermatitis Seasonal allergies Elevated cholesterol HTN (hypertension) Hypothyroid Surgical History History of Hx of colonoscopy (~04/21/20) Family History (Updated 07/07/24 @ 10:17 by Bruna Galindo MA) Maternal Aunt History of breast cancer Mother No problems noted. Father No problems noted. 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 Neuro: Protective sensation grossly intact to bilateral lower extremities. MSK: Prominent medial eminence noted at the left first metatarsophalangeal (MTP) joint without tenderness on palpation. Tracking hallux valgus deformity. Left 1st Metatarsophalangeal joint ROM: 45?. - crepitus. - pain on end range of motion. - Hypermobile L first ray. Right 1st Metatarsophalangeal joint ROM: 45?. - crepitus. - pain on end range of motion. Assessment & Plan Assessment & Plan (1) Hallux valgus (acquired), left foot: Comment: - Causing pain on ambulation. Appreciated on exam - Recommended referral to a computer repair instructor for further assessment and management. - Advised changing exercise shoes to evaluate if symptoms decrease with improved support. Code(s): M20.12 - Hallux valgus (acquired), left foot Category: Medical Plan: * Rx Left foot x-ray weightbearing * Recommended bunion sleeves * Continue over the counter orthotics (2) Tendinitis of left ankle: Code(s): M77.52 - Other enthesopathy of left foot and ankle Category: Medical Plan: * Recommendd range of motion and stretching exercises * No oral analgesic recommendations at this time (3) Tinea unguium: Code(s): B35.1 - Tinea unguium Category: Medical Plan: * Nail biopsy performed of bilateral hallux nail. * Discussed treatment options including topical treatment * Will review results in 1 month Orders: Orders Fungus Cult Hair/Skin/Nail Today B35.1 - Tinea unguium Surgical Today B35.1 - Tinea unguium XR foot LT min 3V Today M20.12 - Hallux valgus (acquired), left foot Coding Level of Care Code New Pt Level 4 (82242) Diagnoses Hallux valgus (acquired), left foot M20.12 Tendinitis of left ankle M77.52 Tinea unguium B35.1 Time Spent (min) 40
== END 2025-01-12 08:43 | disposition home or self-care (01) ==
LOC: HO.HPODS 08:08
PROVIDERS: PCP Student in an Organized Health Care Education/Training Program; Visit Provider Student in an Organized Health Care Education/Training Program
DX: M20.12 Hallux valgus (acquired), left foot (principal); M77.52 Other enthesopathy of left foot and ankle; B35.1 Tinea unguium
CPT/HCPCS: 99204

== ENCOUNTER 2025-01-12 08:07 | Outpatient (REF) | payer BC, SELFPAY ==
--- OUTSIDE RECORDS SUMMARY | 2025-01-12 09:07 | XMS_ITS | Patient Health Record ---
Author Organization [facility] Address [address] [place] [address] Care Team Providers Care Conservation Coordinator Name Role Phone Zenon (RETIRED) Dallin ANDRADE Primary Care Provide Bronson Bronson [phone] Allergies Allergen (clinical drug ingredient) Drug/Non Drug [...] Problem Status W/U Status Risk Notes Problem Screening for malignant neoplasm of colon (870979321) Encounter for screening for malignant neoplasm of colon (Z12.11) Active confirmed Problem History of adenomatous polyp of colon (689316716) History of adenomatous polyp of colon (Z86.010) Active confirmed Problem Preprocedural examination (598958255104953) Preprocedural examination (Z01.818) Active confirmed Plan Of Treatment Future Test Test Name Order Date COLONOSCOPY 04/01/2014 COLONOSCOPY 11/26/2019 Insurance Providers Payer Name Payer Address Payer Phone Subscriber Number Group Number Insured Name Patient Relationship to Insured Coverage Start Date Coverage End Date [facility] [address] [place] [address] [id number] MANI OG Self - patient is the insured Medical (General) History Medical History History ICD Code Denies [place],DM,CVA,Lung disease,renal dise ase HTN Hypothyroidism Hyperlipidemia Seasonal allergies Diverticulitis(presumed) 2018-treated with outpatient antibiotics with good relief--she did not have a CAT scan Colonoscopy 10/2014 with a sm all tubular adenoma removed, mild sigmoid diverticulosis Surgical History Surgery Date(Month/Year)
== END 2025-01-12 08:08 | disposition home or self-care (01) ==
LOC: HO.LNP 08:07
PROVIDERS: PCP Student in an Organized Health Care Education/Training Program; Visit Provider Student in an Organized Health Care Education/Training Program
DX: M20.12 Hallux valgus (acquired), left foot (principal); M77.52 Other enthesopathy of left foot and ankle; B35.1 Tinea unguium
CPT/HCPCS: 87101; 87220; 88304; 88311; 88312

== ENCOUNTER 2025-01-19 16:32 | Outpatient (REF) | payer BC, SELFPAY ==
--- NOTE | ~2025-01-19 | XR_ITS ---
EXAMINATION: XR FOOT, LEFT CLINICAL INFORMATION: M20.12 - Hallux valgus (acquired), left foot COMPARISON: None available. TECHNIQUE: AP, lateral, and oblique views of the left foot. FINDINGS: Minimal hallux valgus. No fracture. No significant joint space narrowing. No marginal osteophytes. No osseous erosion. Large plantar calcaneal spur. No abnormal soft tissue calcification. XR/XR foot LT min 3V IMPRESSION: No acute findings Electronically signed by: Hayden Still MD 01/20/2025 11:37 AM ANITHA
== END 2025-01-19 16:33 | disposition home or self-care (01) ==
LOC: HO.XRAY 16:32
PROVIDERS: Visit Provider Student in an Organized Health Care Education/Training Program
DX: M20.12 Hallux valgus (acquired), left foot (principal)
CPT/HCPCS: 73630

== ENCOUNTER → 2025-01-19 16:36 | Outpatient (BNV) | payer BC, SELFPAY | PROVIDERS: Visit Provider Radiology Diagnostic Ultrasound | DX: M20.12 Hallux valgus (acquired), left foot (principal) | CPT/HCPCS: 73630 ==

== ENCOUNTER 2025-01-26 08:28 | Outpatient (AMB) | payer BC, SELFPAY ==
--- NOTE | 2025-01-26 08:33 | A.OFFVIS_ITS ---
Intake Visit Reasons: left foot Hallux valgus F/U Intake Note: Monse is a 59 year old female who presents today for a follow up of her left foot Hallux valgus. At patients last visit she was advise to do range of motion stretches and stretches exercises at home. Patient reports improvements when she perfermed her at home exercies. She was wondering if she could get another planflit and print out of the exercies if possible. Allergies penicillin V Allergy (Mild, Verified 01/26/25 08:34) Rash HPI HPI left foot Hallux valgus F/U: Details: The patient is a 59-year-old female past medical history of hypertension returning for left foot pain and nail specimen review. She notes the left dorsal foot pain has decreased after performing the range of motion exercises. History: The patient reports the onset of a bump on her left foot at the beginning of the summer, initially without pain, but now experiencing occasional soreness. She has been actively participating in [employer] over the past year, which has also resulted in pain on the top of her foot, likely due to increased activity. The patient has a history of thickened and ingrown toenails on her big toes. The patient also reports a history of plantar fasciitis, for which she uses a sleeve to manage swelling and provide cushioning. 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 - Exercise: The patient participates in [employer] regularly. [facility] Medical History (Updated 01/12/25 @ 08:51 by Charles uGevara DPM) Hallux valgus (acquired), left foot Foot pain Hyperlipidemia Seborrheic dermatitis Seasonal allergies Elevated cholesterol HTN (hypertension) Hypothyroid Surgical History History of Hx of colonoscopy (~04/21/20) Family History (Updated 07/07/24 @ 10:17 by Bruna Galindo MA) Maternal Aunt History of breast cancer Mother No problems noted. Father No problems noted. 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 Left hallux nail discoloration, thickened, dystrophic. Neuro: Protective sensation grossly intact to bilateral lower extremities. MSK: Prominent medial eminence noted at the left first metatarsophalangeal (MTP) joint without tenderness on palpation. Tracking hallux valgus deformity. Left 1st Metatarsophalangeal joint ROM: 45?. - crepitus. - pain on end range of motion. - Hypermobile L first ray. Right 1st Metatarsophalangeal joint ROM: 45?. - crepitus. - pain on end range of motion. Results Reviewed Results Reviewed: 01/12/25 - nail culture no growth to date 01/13/25 - nail specmen pathology - negative on PAS stain Assessment & Plan Assessment & Plan (1) Hallux valgus (acquired), left foot: Comment: - Causing pain on ambulation. Appreciated on exam - Recommended referral to a art model for further assessment and management. - Advised changing exercise shoes to evaluate if symptoms decrease with improved support. Code(s): M20.12 - Hallux valgus (acquired), left foot Category: Medical Plan: * Reviewed Left foot x-rays * Recommended bunion sleeves * Continue over the counter orthotics (2) Tendinitis of left ankle: Code(s): M77.52 - Other enthesopathy of left foot and ankle Category: Medical Plan: * Continue range of motion and stretching exercises. Recommended to begin resistance strengthening exercises. * No oral analgesic recommendations at this time (3) Tinea unguium: Code(s): B35.1 - Tinea unguium Category: Medical Plan: * Nail biopsy reviewed bilateral hallux nail. * Rx Ciclopirox Medications: New ciclopirox 8% Apply to fungal toenails daily. Remove build-up at the end of the week. 1 appl topical BEDTIME 6.6 mL 3RF fungal toe nail 4 months B35.1 - Tinea unguium Coding Level of Care Code Est Pt Level 3 (47252) Diagnoses Hallux valgus (acquired), left foot M20.12 Tendinitis of left ankle M77.52 Tinea unguium B35.1 Time Spent (min) 25
--- OUTSIDE RECORDS SUMMARY | 2025-01-26 08:41 | XMS_ITS | Patient Health Record ---
Author Organization [facility] Address [address] [place] [address] Care Team Providers Care Cokeman Name Role Phone Zenon (RETIRED) Dallin ANDRADE Primary Care Provide r Bronson Sorenson [phone] Allergies Allergen (clinical drug ingredient) Drug/Non Drug [...] stop date) Former Smoker NA - NA Social History Drugs/Alcohol: Social Info Question Answer Notes Alcohol Screen Did you have a drink containing alcohol in the past year? Yes How often did you have a drink containing alcohol in the past year? Monthly or less (1 point) How many drinks did you have on a typical day when you were drinking in the past year? 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[employer] [place] Notes: Nonsmoker; no sig alcohol Nonsmoker; no sig alcohol Problems Problem Type SNOMED Code ICD Code Onset Dates Problem Status W/U Status Risk Notes Problem Screening for malignant neoplasm of colon (804512921) Encounter for screening for malignant neoplasm of colon (Z12.11) Active confirmed Problem History of adenomatous polyp of colon (258429511) History of adenomatous polyp of colon (Z86.010) Active confirmed Problem Preprocedural examination (412185549977726) Preprocedural examination (Z01.818) Active confirmed Plan Of Treatment Future Test Test Name Order Date COLONOSCOPY 04/01/2014 COLONOSCOPY 11/26/2019 Insurance Providers Payer Name Payer Address Payer Phone Subscriber Number Group Number Insured Name Patient Relationship to Insured Coverage Start Date Coverage End Date [facility] [address] [place] [address] [id number] [address]I OG Self - patient is the insured Medical (General) History Medical History History ICD Code Denies [place],DM,CVA,Lung disease,renal dise ase HTN Hypothyroidism Hyperlipidemia Seasonal allergies Diverticulitis(presumed) 2018-treated with outpatient antibiotics with good relief--she did not have a CAT scan Colonoscopy 10/2014 with a sm all tubular adenoma removed, mild sigmoid diverticulosis Surgical History Surgery Date(Month/Year)
== END 2025-01-26 09:09 | disposition home or self-care (01) ==
LOC: HO.HPODS 08:28
PROVIDERS: Visit Provider Student in an Organized Health Care Education/Training Program
DX: M20.12 Hallux valgus (acquired), left foot (principal); M77.52 Other enthesopathy of left foot and ankle; B35.1 Tinea unguium
CPT/HCPCS: 99213